=== PATIENT | male | born 1935 | race Caucasian/White ===

== ENCOUNTER 2021-09-03 07:59 | Inpatient (IN) | payer OTHER ==
[~2021-09-03] VITALS: Ht 167.6 cm; Wt 50.3 kg
[2021-09-03 08:09] VITALS: BP 120/90
[2021-09-03] MEDS ORDERED: PANTOPRAZOLE 40 MG INJ VIAL IVP ONE (08:15)
[2021-09-03] MEDS ORDERED: ONDANSETRON 4 MG/2 ML VIAL IVP ONE ×2 (08:15→08:50)
--- NOTE | 2021-09-03 08:20 | NUR ---
BLOOD COLLECTED. TIFFANIE MCLAINIA COLLECTED. BOTH GIVEN TO LAB.
[2021-09-03] MEDS ORDERED: NACL 0.9% 500 ML IV ONE ×2 (08:35→09:20)
[2021-09-03] MEDS ORDERED: METOCLOPRAMIDE 10 MG/2 ML INJ VIAL IVP ONE (08:40)
[2021-09-03 08:48] LABS: BASOPHILS % (AUTO) 0.1 % (0.0-2.0); HEMATOCRIT 56.2 % (36-52); HEMOGLOBIN 18.5 g/dL (12.0-18.0); LYMPHOCYTES # (AUTO) 0.6 K/uL (2.0-11.5); LYMPHOCYTES % (AUTO) 4.6 % (20.5-51.1); MEAN CORPUSCULAR HEMOGLOBIN 31 pg (27-31); MEAN CORPUSCULAR HGB CONC 33 g/dL (33-37); MEAN CORPUSCULAR VOLUME 95.1 fL (80-94); MONOCYTES # (AUTO) 0.7 K/uL (0.8-1.0); MONOCYTES % (AUTO) 5.4 % (1.7-9.3); NEUTROPHILS # (AUTO) 11.2 K/uL (1.8-7.7); PLATELET COUNT (AUTO) 316 K/uL (140-450); RED BLOOD CELL COUNT(AUTO) 5.91 MIL/uL (4.20-6.10); RED CELL DISTRIBUTION WIDTH 12.7 % (11.6-13.7); WHITE BLOOD COUNT (AUTO) 12.4 K/uL (4.8-10.8)
--- NOTE | 2021-09-03 08:53 | NUR ---
XRAY AT BEDSIDE
[2021-09-03 08:57] LABS: PROTHROMBIN TIME 11.3 secs (10.8-13.4)
--- NOTE | 2021-09-03 08:57 | NUR ---
C/O VOMITING BLOOD, DIZZINESS, MID ABDOMINAL PAIN X LAST NIGHT. COFFEE GROUND EMISIS. PT PRESENTED TO HOSPITAL WITH BRUISING ON BOTH ARMS. PAIN A 7/10. BILATERAL 18G IVS IN AC WITH BVOLUS RUNNING. PT AXOX4 AND AMBULATORY. PT COMPLING OF ABDOMINAL PAIN SINCE LAST NIGHT. PT STATES PAIN IS LIKE CRAMPING. SO FAR HAS PRODUCED 130CC EMISIS. PMH: VIT D DEF, HERNIA SURGERY. ROXYA
[2021-09-03 09:14] LABS: NEUTROPHILS % (AUTO) 89.9 % (42.2-75.2)
[2021-09-03] MEDS ORDERED: VITD400 PO (09:14)
[2021-09-03 09:16] LABS: ALBUMIN 3.9 g/dL (3.4-5.0); ASPARTATE AMINOTRANSFERASE 23 U/L (15-37); CARBON DIOXIDE 36.9 mmol/L (21-32); CHLORIDE 100 mmol/L (98-107); CREATININE 1.7 mg/dL (0.6-1.3); GLUCOSE 178 mg/dL (74-106); LIPASE 168 U/L (73-393); POTASSIUM 3.9 mmol/L (3.5-5.1); SODIUM SERUM 147 mmol/L (136-145); TOTAL BILIRUBIN 1.2 mg/dL (0.0-1.0); UREA NITROGEN, BLOOD 27 mg/dL (7-18)
--- NOTE | 2021-09-03 09:42 | NUR ---
PT REPOSITIONED WITH FOR COMFORT AND PROVIDED WITH PILLOW
--- NOTE | 2021-09-03 09:54 | NUR ---
VANDANA TSAI CELL NUMBER [phone]
[2021-09-03] MEDS ORDERED: AZITHROMYCIN 500 MG in DEXTROSE 5% 250 ML IV ONE (10:05)
[2021-09-03] MEDS ORDERED: cefTRIAXone 1,000 MG VIAL ONE (10:10)
--- NOTE | 2021-09-03 10:15 | NUR ---
pt taken to ct via leila
--- NOTE | 2021-09-03 10:19 | NUR ---
per sepsis sheet patient is to receive 1500mL bolus of NS. 1000 mL bolus given. per Dr. Deleon we are to only given 1000mL bolus due to patient having pulmonary edema
[2021-09-03] MEDS ORDERED: guaiFENesin DM 200/20 MG-10 ML 10 ML UDC PO PRN (10:30)
[2021-09-03] MEDS ORDERED: ACETAMINOPHEN 325 MG TAB PO PRN (10:30)
[2021-09-03] MEDS ORDERED: DOCUSATE SODIUM 100 MG GELCAP PO PRN (10:30)
[2021-09-03] MEDS ORDERED: PANTOPRAZOLE 40 MG INJ VIAL IVP SCH (10:30)
[2021-09-03] MEDS ORDERED: HYDROcodone/APAP 7.5/325 MG 1 TAB PO PRN (10:30)
[2021-09-03] MEDS ORDERED: ONDANSETRON 4 MG/2 ML VIAL IM/IVP PRN (10:30)
[2021-09-03] MEDS ORDERED: POTASSIUM CHLORIDE 10 MEQ TABER PO PRN (10:30)
[2021-09-03] MEDS ORDERED: ZOLPIDEM 5 MG TAB PO PRN (10:30)
--- NOTE | 2021-09-03 10:41 | NUR ---
Patient appears to be resting comfortably in bed. Vital Signs within normal limits. Respirations even and unlabored.
[2021-09-03 11:03] LABS: AMYLASE 79 U/L (25-115); CHOL/HDL RATIO 2.5 (1-4.5); FREE T4 (FREE THYROXINE) 1.54 ng/dL (0.76-1.46); HDL CHOLESTEROL 64 mg/dL (40-60); LDL (CALC) 82 mg/dL (60-100); LIPASE 166 U/L (73-393); MAGNESIUM 2.3 mg/dL (1.8-2.4); PHOSPHORUS 5.2 mg/dL (2.5-4.9); THYROID STIMULATING HORMONE 2.53 uIU/mL (0.34-3.74); TRIGLYCERIDES 56 mg/dL (30-150)
[2021-09-03] MEDS ORDERED: AZITHROMYCIN 500 MG INJ VIAL IV ONE (11:06)
[2021-09-03 11:58] LABS: APPEARANCE,URINE CLEAR (CLEAR); BILIRUBIN,URINE 1+ (NEGATIVE); BLOOD, URINE NEGATIVE (NEGATIVE); COLOR,URINE DARK YELLOW (YELLOW); LEUKOCYTE ESTERASE ,URINE NEGATIVE (NEGATIVE); NITRITE, URINE NEGATIVE (NEGATIVE); UGLUCOSE NEGATIVE (NEGATIVE)
--- NOTE | 2021-09-03 12:05 | NUR ---
100CC COFFEE GROUND EMISIS THROWN AWAY
[2021-09-03 12:32] LABS: PROTHROMBIN TIME 11.6 secs (10.8-13.4)
[2021-09-03 12:32] LABS: CALCIUM OXALATE CRYSTALS,UR None Seen /HPF (None Seen); OTHER CRYSTALS,URINE None Seen /HPF (None Seen); RBC,URINE NONE SEEN /HPF (0-5); TRICHOMONAS,URINE None Seen /HPF (None Seen); TRIPLE PHOSPHATE CRYSTAL,UR None Seen /HPF (None Seen); URIC ACID CRYSTALS,URINE None Seen /HPF (None Seen); URINE AMORPHOUS URATE None Seen /HPF (None Seen); WBC,URINE 0-5 /HPF (0-5); YEAST,URINE None Seen /HPF (None Seen)
[2021-09-03 12:33] LABS: COARSE GRANULAR CASTS,URINE None Seen /LPF (None Seen); FINE GRANULAR CASTS,URINE None Seen /LPF (None Seen); HYALINE CASTS, URINE None Seen /LPF (None Seen); OTHER CASTS, URINE None Seen /LPF (None Seen); RED BLOOD CELL CASTS,URINE None Seen /LPF (None Seen); WAXY CASTS,URINE None Seen /LPF (None Seen)
--- NOTE | 2021-09-03 12:47 | NUR ---
CURRENT ORAL TEMP 100.2. PT PROVIDED WITH ACETAMINOPHEN PO AND COOL TOWELS
--- NOTE | 2021-09-03 13:05 | NUR ---
RECEIVED PT FROM ER NURSE JOSE FOR CONTINUITY OF CARE. PT TRANSPORTED FROM ER VIA [facility]. PT ABLE TO WALK WITH STEADY GAIT FROM [facility] TO HIS BED. A&O4. RESPIRATIONS EVEN AND UNLABORED AT ROOM AIR. NO SIGNS OF DISTRESS NOTED. DENIES PAIN AT THIS TIME. V/S STABLE. SKIN WARM, DRY AND INTACT. IV BILATERAL AC BOTH 18 G. ABDOMEN IS SOFT, NON DISTENDED WITH ACTIVE BOWEL SOUNDS PRESENT. PT CONTINENT TO BOWEL AND VOID, AMBULATORY. NO EDEMA PRESENT ON ALL EXTREMITIES. PT ABLE TO COMMUNICATE HIS NEEDS. PT IS NOW COMFORTABLE LYING IN BED. CALL LIGHT WITHIN REACH. SAFETY MEASURES IN PLACE. WILL CONTINUE TO MONITOR.
--- NOTE | 2021-09-03 13:09 | NUR ---
Patient will be admitted to care of DR. HARRINGTON. Admited to TELE. Will go to room 112B. Belongings list completed. Report to CARRIE SCHMITZ.
--- NOTE | 2021-09-03 14:07 | NUR ---
PT WS SEEN FOR DYSPHAGIA. PT WAS ABLE TO SAFELY SWALLOW PUREE DIET WITH THIN LIQUID WITHOUT S/S OF ASPIRATION. RECOMMENDATION MS DIET WITH THIN LIQUID
--- NOTE | 2021-09-03 14:20 | NUR ---
RECEIVED CALL FROM DR SERRA. PT IS FOR EGD TOMORROW. ORDERED PT TO BE ON CLEAR LIQUID DIET THEN NPO AFTER 10PM, PROTONIX 40 MG IVP EVERY 12 HRS. CONSENT FOR EGD PRINTED.
[2021-09-03] MEDS: DEXT 5% / NACL 0.9% 500 ML IV SCH ×2 (14:45→21:00)
[2021-09-03] MEDS: PIPERACILLIN/TAZOBACTAM 3.375 GM in DEXTROSE 5% 50 ML IV SCH ×2 (15:03→21:04)
[2021-09-03 15:20] VITALS: BP 145/74
--- NOTE | 2021-09-03 15:20 | NUR ---
Patient's Plan of Care was discussed and reviewed with Jacquie JUAN
--- NOTE | 2021-09-03 15:50 | NUR ---
SPOKE TO DAUGHTER VANDANA FOR UPDATES ABOUT PTs CONDITION.
--- NOTE | 2021-09-03 17:45 | NUR ---
DID PT ROUNDS. PT IN BED, SLEEPING. BREATHING EVEN AND UNLABORED. NO DISTRESS NOTED. NO ADVERSE REACTION ON ANTIBIOTICS GIVEN. INFORMED PT ABOUT EGD TOMORROW. INFORMED PT ABOUT HIS DIET OF CLEAR LIQUID THEN NPO AFTER 10PM. NPO SIGN STARTING AT 10PM POSTED ON THE DOOR. WILL ENDORSE TO THE MEDIA DIRECTOR NURSE.
--- NOTE | 2021-09-03 19:20 | NUR ---
RECEIVED REPORT FROM AM NURSE . PT IS AWAKE ON RM AIR WITH NO S/S OF DISTRESS AT THIS TIME. PT IS AMBULATORY. IV SITE RAC 18G. SKIN IS INTACT. PLAN OF CARE DISCUSSED. WILL CONTINUE TO MONITOR.
--- NOTE | 2021-09-03 19:25 | NUR ---
ENDORSED PT TO STRAIGHTENING ROLL OPERATOR NURSE FOR CONTINUITY OF CARE. ALL NEEDS MET THROUGHOUT SHIFT. PT IS STABLE.
[2021-09-03 20:00] VITALS: BP 148/70
--- NOTE | 2021-09-03 21:00 | NUR ---
HS MEDS GIVEN . EDUCATED PT RE: NPO STATUS AFTER 10PM FOR EGD IN AM 09/04/[address] MALDONADO. PT AMBULATORY. HS MEDS GIVEN. IV SITE RAC 18G; LAC 18G INFUSING D5NS@80CC/HR. SKIN IS INTACT. DENIES PAIN. WILL CONTINUE TO MONITOR.
[2021-09-03] MEDS: PANTOPRAZOLE 40 MG INJ VIAL IVP SCH (21:06)
[2021-09-04] VITALS: BP 142/76
--- NOTE | 2021-09-04 02:00 | NUR ---
FREQ ROUNDS. PT SLEEPING RR EVEN AND UNLABORED. NAD. WILL CONTINUE TO OBSERVE.
[2021-09-04] MEDS: DEXT 5% / NACL 0.9% 500 ML IV SCH ×4 (03:08→22:00)
[2021-09-04 04:00] VITALS: BP 147/66
[2021-09-04] MEDS: PIPERACILLIN/TAZOBACTAM 3.375 GM in DEXTROSE 5% 50 ML IV SCH ×3 (04:05→20:23)
--- NOTE | 2021-09-04 06:05 | NUR ---
PT RESTING IN BED/DOZING. VSS AFEBRILE ON TELE: SR/BBB/PEAKED T-WAVE. REMAINS NPO FOR EGD THIS MORNING. PREOP CHECKLIST DONE ; COVID INFO IN COMPUTER. PT WANTS TO SPEAK WITH SURGEON. CONSENT ON CHART NEEDS TO BE SIGNED. CHG BATH WIPES AT BEDSIDE. PREOP BATH NEEDS TO BE DONE. CONTINUE TO MONITOR.
[2021-09-04 06:07] LABS: T4 (THYROXINE) 10.6 ug/dL (4.5-12.0)
[2021-09-04 07:27] LABS: HEMATOCRIT 43.8 % (36-52); HEMOGLOBIN 14.3 g/dL (12.0-18.0); LYMPHOCYTES # (AUTO) 1.1 K/uL (2.0-11.5); LYMPHOCYTES % (AUTO) 7.9 % (20.5-51.1); MEAN CORPUSCULAR HEMOGLOBIN 31 pg (27-31); MEAN CORPUSCULAR HGB CONC 33 g/dL (33-37); MONOCYTES # (AUTO) 1.3 K/uL (0.8-1.0); NEUTROPHILS % (AUTO) 82.1 % (42.2-75.2); PLATELET COUNT (AUTO) 196 K/uL (140-450); RED BLOOD CELL COUNT(AUTO) 4.61 MIL/uL (4.20-6.10); RED CELL DISTRIBUTION WIDTH 12.5 % (11.6-13.7); WHITE BLOOD COUNT (AUTO) 13.5 K/uL (4.8-10.8)
--- NOTE | 2021-09-04 07:30 | NUR ---
ENDORSEDPT REPORT TO AM CARRIE ABDI FOR CONTINUITY OF CARE. PT IS STABLE.
[2021-09-04 07:32] LABS: ANION GAP 9.4 (8-16); CARBON DIOXIDE 32.1 mmol/L (21-32); CHLORIDE 108 mmol/L (98-107); CREATININE 1.4 mg/dL (0.6-1.3); GLUCOSE 130 mg/dL (74-106); POTASSIUM 3.5 mmol/L (3.5-5.1); SODIUM SERUM 146 mmol/L (136-145); UREA NITROGEN, BLOOD 23 mg/dL (7-18)
[2021-09-04 08:00] VITALS: BP 147/66
--- NOTE | 2021-09-04 08:00 | NUR ---
RECEIVED ENDORSEMENT FROM PM SHIFT NURSE W/ PATIENT NPO FROM MIDDLE NIGHT FOR EGD. WAITING MD EXPLAIN PROCEDURE TO PATIENT AND SIGN CONSENT. CHG BATH DONE AFTER RECEIVE REPORT. PIV LCA 18G SALINE LOCK, RAC 18G D5NA @80ML/HR INFUSING. WILL CONTINUE TO MONITOR.
[2021-09-04] MEDS: PANTOPRAZOLE 40 MG INJ VIAL IVP SCH ×2 (08:43→20:24)
[2021-09-04] MEDS ORDERED: MIDAZOLAM 2 MG/2 ML VIAL ONE (08:45)
[2021-09-04] MEDS ORDERED: fentaNYL citrate 0.05 MG/ML VIAL ONE (08:45)
--- NOTE | 2021-09-04 08:54 | NUR ---
OR NURSE COME TO PICK PATIETN FOR EGD, CONSENT SIGNED, LAC IV PULL OUT ACCIDENTLY BY PATIENT. WILL F/U.
--- NOTE | 2021-09-04 10:12 | NUR ---
PATIENT RETURN FROM OR FROM EGD PROCEDURE WHICH FIND MULTIPLE VARICES TEAR, HIATAL HERNIA W/ NG-TUBE PLACE, WRIST RESTRICT IN PLACE, PATTIENT JUST WEAK UP AND PULL NG-TUBE OUT.
[2021-09-04] MEDS ORDERED: MIDAZOLAM 2 MG/2 ML VIAL IVP ONE (10:20)
[2021-09-04] MEDS ORDERED: fentaNYL citrate 0.05 MG/ML VIAL IVP ONE (10:20)
[2021-09-04 12:00] VITALS: BP 145/64
[2021-09-04 16:00] VITALS: BP 166/56
--- NOTE | 2021-09-04 17:43 | NUR ---
FOUND PATIENT'S IV OUT. PLACE A NEW IV AT R. UPPER ARM 22G.
--- NOTE | 2021-09-04 19:25 | NUR ---
ENDORSE PATIENT TO PM SHIFT NURSE W/ PIV @ R. UPPER ARM 22G PATENT. IV D5NS INFUSING, NG-TUBE CONNECT TO WALL SUCTION ON
--- NOTE | 2021-09-04 19:26 | NUR ---
RECEIVED REPORT FROM AM NURSE TRINIDAD RN FOR CONTINUITY OF CARE. PT IS RESTING, ON ROOM AIR,. STILL NPO HYPOACTIVE BOWEL SOUNDS. NG TUBE TO INTERMITTENT SUCTION DRAINING BLOOD TINGED GASTRIC FLUID. IV SITE ASHWIN 22G INFUSING D5 0.9NS @80CC/HR.SKIN IS INTACT. PLAN OF CARE DISCUSSED WILL CONTINUE TO MONITOR.
[2021-09-04 20:00] VITALS: BP 147/66
--- NOTE | 2021-09-04 21:30 | NUR ---
HS MEDS GIVEN. PT REMAINS NPO HYPOACTIVE BOWEL SOUNDS. WRIST RESTRAINTS HAVE BEEN OFF SINCE 1729. ABLE TO MAKE NEEDS KNOWN. PT HAS DRY THROAT AND COUGHS UP STICKY PHLEM. IN EMESIS BAG. WILL CONTINUE WITH FREQ ROUNDS.
[2021-09-05] VITALS: BP 148/60
[2021-09-05] MEDS: DEXT 5% / NACL 0.9% 500 ML IV SCH ×2 (01:00→11:04)
--- NOTE | 2021-09-05 02:00 | NUR ---
FREQ ROUNDS. PT SLEEPING RR EVEN AND UNLABORED. ON ROOM AIR. NG-TUBE STILL TO INTERMITTENT SUCTION DRAINING SANGUINOUS GASTRIC FLUID.IV INTACT, D5NS INFUSING@80CC/HR. REMAINS NPO FOR CT OF THE ABDOMEN WITH CONTRAST TODAY 09/05/2021. PT SIGNED HIS PART OF THE CONSENT.IT'S ON THE CHART
[2021-09-05 04:00] VITALS: BP 166/56
[2021-09-05] MEDS: PIPERACILLIN/TAZOBACTAM 3.375 GM in DEXTROSE 5% 50 ML IV SCH ×3 (04:38→21:22)
[2021-09-05 06:30] LABS: BASOPHILS % (AUTO) 0.3 % (0.0-2.0); EOSINOPHILS % (AUTO) 0.1 % (0.0-4.0); HEMATOCRIT 42.1 % (36-52); HEMOGLOBIN 13.9 g/dL (12.0-18.0); LYMPHOCYTES # (AUTO) 1.2 K/uL (2.0-11.5); LYMPHOCYTES % (AUTO) 11.9 % (20.5-51.1); MEAN CORPUSCULAR HEMOGLOBIN 31 pg (27-31); MEAN CORPUSCULAR HGB CONC 33 g/dL (33-37); MEAN CORPUSCULAR VOLUME 95.6 fL (80-94); NEUTROPHILS # (AUTO) 7.9 K/uL (1.8-7.7); NEUTROPHILS % (AUTO) 77.7 % (42.2-75.2); PLATELET COUNT (AUTO) 159 K/uL (140-450); RED BLOOD CELL COUNT(AUTO) 4.41 MIL/uL (4.20-6.10); WHITE BLOOD COUNT (AUTO) 10.2 K/uL (4.8-10.8)
[2021-09-05 06:47] LABS: ANION GAP 9.2 (8-16); CARBON DIOXIDE 29.3 mmol/L (21-32); CHLORIDE 112 mmol/L (98-107); CREATININE 1.1 mg/dL (0.6-1.3); GLUCOSE 97 mg/dL (74-106); POTASSIUM 3.5 mmol/L (3.5-5.1); SODIUM SERUM 147 mmol/L (136-145); UREA NITROGEN, BLOOD 15 mg/dL (7-18)
--- NOTE | 2021-09-05 07:25 | NUR ---
ENDORSED REPORT TO AM NURSE TRINIDAD RN FOR CONTINUITY OF CARE. PT IS STABLE.
--- NOTE | 2021-09-05 07:26 | NUR ---
RECEIVED ENDORSEMENT FROM PM SHIFT NURSE THAT PATIENT REST IN BED, W/ PIV @ R. UPPER ARM 22G PATENT. IV D5NS @80ML/HR INFUSING, NG-TUBE CONNECT TO WALL SUCTION ON
[2021-09-05 08:00] VITALS: BP 160/58
--- NOTE | 2021-09-05 08:58 | NUR ---
PATIENT HAS BEEN SCREENED AND CATEGORIZED MODERATE NUTRITION RISK. PATIENT WILL BE SEEN WITHIN 3-5 DAYS OF ADMISSION. /08/[address]
[2021-09-05] MEDS: PANTOPRAZOLE 40 MG INJ VIAL IVP SCH ×2 (09:30→21:23)
[2021-09-05] MEDS: CALCIUM ACETATE 667 MG TAB PO SCH ×2 (10:55→17:10)
[2021-09-05] MEDS: DEXT 5% /NACL 0.9% 1,000 ML IV SCH (11:55)
[2021-09-05 12:00] VITALS: BP 119/62
--- NOTE | 2021-09-05 15:00 | NUR ---
DC PLANNING PATIENT IS AN 86-YEAR-OLD MALE ADMITTED TO [facility]/ED ON 09/03/2021. DUE TO EPISODES OF PERSISTENT DARK BROWN HEMATEMESIS ASSOCIATED WITH NAUSEA. SW MET WITH PATIENT AT BEDSIDE TO DISCUSS AND GATHER PATIENT'S COLLATERAL INFORMATION. PATIENT WAS AWAKE AND ALERT DURING MEETING AND REPORTED LIVING AT HOME WITH HIS DAUGHTER VANDANA MARRUFO AND HER BOYFRIEND. PATIENT STATED HAVING A GOOD FAMILY SUPPORT BUT ALSO CONTINUE BEEN REALLY INDEPENDENT AT HOME. STATED " MY DAUGHTER AND HER BOYFRIEND LIVES WITH ME AT MY HOUSE BUT I CAN TAKE CARE OF MY SELF AND MY ANIMALS" PATIENT REPORTED THAT HIS DAUGHTER VANDANA IS HIS EMERGENCY CONTACT AND MEDICAL DECISION MAKER. PATIENT STATED THAT HE DO NOT HAVE A.D. AND DECLINED A.D. INF. FORMS PROVIDED BY SYDNEE. PATIENT STATED" IF I CAN'T THEN VANDANA CAN MAKE DECISIONS" PATIENT REPORTED NOT TAKING ANY MEDICATIONS AT THIS TIME AND IF HE NEEDS MEDICATIONS TO BE PRESCRIBED AND SEND TO [facility] IN [facility]. PATIENT REPORTED NEVER HAVING ISSUES TAKING OR GETTING HIS MEDICATIONS AND ALSO REPORTED NOT HAVING ANY DME AT HOME. PATIENT STATED THAT HE WANTS TO GO HOME SOON AND WHEN HE IS READY FOR DC HE WILL BE BANK VAULT ATTENDANT BY HIS DAUGHTER VANDANA FROM [facility] TO TAKE HIM HOME. SYDNEE EXPLAINED TO PATIENT THE NEED FOR A FOLLOW UP APPOINTMENT WITH HER PCP WITHIN 5-7 DAYS AFTER HER DC FROM [facility]. PATIENT AGREED AND STATED THAT HE WILL MAKE HIS OWN APPOINTMENT. SW THANKED HIM FOR HIS INFORMATION AND WILL FOLLOW UP NEEDED.
[2021-09-05 16:00] VITALS: BP 157/61
--- NOTE | 2021-09-05 16:14 | NUR ---
DC PLANNING: THE PATIENT PRESENTED FROM HOME WITH C/O MULTIPLE EPISODES OF HEMATEMESIS AND NAUSEA. WBC'S 12.4, LACTIC ACID 3.8, DX OF UGI, SEPSIS AND DEHYDRATION. GIVEN ZOFRAN, IVF'S, REGLAN, ROCEPHIN AND ZITHROMAX IN ED. GI CONSULTED, EGD SCHEDULED TODAY, NGT IN PLACE. ST EVALUATION, RECOMMENDED PUREE DIET WITH THIN LIQUIDS. PT EVAL, PATIENT AMBULATED 12 FT, RECOMMENDATION FOR HOME HEALTH. PATIENT CONTINUED ON ZOSYN IV AND PROTONIX IV. T-MAX TODAY 99.7. CM SPOKE WITH THE PATIENTS DAUGHTER BY PHONE AND CONFIRMED HIS ADDRESS AND PHONE NUMBER. HE LIVES WITH HIS DAUGHTER IN A SINGLE STORY HOUSE AND IS INDEPENDENT IN ALL ACTIVITIES. HE HAS NO DME OR H/O HOME HEALTH AND DRIVES HIMSELF TO APPOINTMENTS. HIS PCP RETIRED AND HIS DAUGHTER IS IN THE PROCESS OF FINDING ANOTHER ONE. SHE IS IN AGREEMENT WITH HOME HEALTH FOR P.T. AND POSSIBLE S.T. IF NEEDED AND STATES THAT THE PATIENT HAS NEVER BEEN IN A SNF. SHE WILL PROVIDE TRANSPORT FOR THE PATIENT WHEN HE IS DISCHARGED. DC PLAN IS TO RETURN HOME WITH HOME HEALTH, CM WILL FOLLOW. Addendum: 09/05/21 at 1622 by Shilpi Camilo CM Amended: Links added. Addendum: 09/06/21 at 1525 by Shilpi Camilo CM DC PLANNING: ORDER RECEIVED FOR DC PLANNING AND HOME HEALTH. BOGDAN SPOKE WITH THE PATIENTS DAUGHTER TO DISCUSS HOME HEALTH CHOICES, STATES SHE HAS NO PREFERENCE, PERMISSION GIVEN TO REFER THE PATIENT TO [facility]. REFERRAL FAXED TO [facility], BOGDAN ALSO SPOKE WITH THE PATIENT AT BEDSIDE TO EXPLAIN THAT HE MIGHT DC TOMORROW AND THAT HOME HEALTH WILL BE ARRANGED. BOGDAN WILL FOLLOW. Addendum: 09/07/21 at 0833 by Shilpi Camilo CM DC PLANNING: BOGDAN SPOKE WITH HARJINDER AT [facility] AND CONFIRMED THAT THEY HAVE ACCEPTED THE PATIENT AND WILL START SEEING HIM. BOGDAN ENDORSED THAT THE PATIENT WILL DC TODAY. CM WILL FOLLOW.
--- NOTE | 2021-09-05 17:58 | NUR ---
SINCE 1300 TODAY, PATIENT WENT BATHROOM FOR BM X2. PER PATIENT REPORT THAT 1ST BM FULL W/ BLOOD. 2ND BM WAS AROUND 3 HOURS LATER SINCE 1ST, AND STOOL IS NORMAL PER PATIENT. WILL CONTINUE TO MONITOR
--- NOTE | 2021-09-05 19:42 | NUR ---
ENDORSE PT TO PM SHIFT NURSE THAT PATIENT REST IN BED, W/ PIV @ L. UPPER ARM 22G PATENT. IV D5NS @80ML/HR INFUSING, NG-TUBE CONNECT TO WALL SUCTION ON
--- NOTE | 2021-09-05 19:45 | NUR ---
RECEIVED PATIENT FROM AM NURSE FOR CONTINUITY OF CARE.PT IS STABLE
[2021-09-05 20:00] VITALS: BP 141/76
--- NOTE | 2021-09-05 23:00 | NUR ---
PT ASLEEP,RESPIRATIONS EVEN AND UNLABORED,NO DISTRESS NOTED
[2021-09-06] VITALS: BP 131/69
[2021-09-06] MEDS: DEXT 5% /NACL 0.9% 1,000 ML IV SCH ×2 (00:25→12:30)
--- NOTE | 2021-09-06 03:00 | NUR ---
PATIENT ASLEEP,NO DISTRESS NOTED
[2021-09-06 04:00] VITALS: BP 136/71
[2021-09-06] MEDS: PIPERACILLIN/TAZOBACTAM 3.375 GM in DEXTROSE 5% 50 ML IV SCH ×3 (05:02→22:00)
--- NOTE | 2021-09-06 06:15 | NUR ---
PATIENT PULLED OUT HIS NGT. TEXTED DR MALDONADO, AWAITING FOR RESPONSE
[2021-09-06 06:45] LABS: ANION GAP 9.4 (8-16); CARBON DIOXIDE 29.9 mmol/L (21-32); CHLORIDE 108 mmol/L (98-107); CREATININE 1.1 mg/dL (0.6-1.3); GLUCOSE 102 mg/dL (74-106); POTASSIUM 3.3 mmol/L (3.5-5.1); SODIUM SERUM 144 mmol/L (136-145); UREA NITROGEN, BLOOD 11 mg/dL (7-18)
[2021-09-06 06:48] LABS: PHOSPHORUS 2.5 mg/dL (2.5-4.9)
[2021-09-06 06:52] LABS: BASOPHILS % (AUTO) 0.3 % (0.0-2.0); EOSINOPHILS # (AUTO) 0.1 K/uL (0-0.4); EOSINOPHILS % (AUTO) 1.5 % (0.0-4.0); HEMATOCRIT 44.9 % (36-52); HEMOGLOBIN 14.7 g/dL (12.0-18.0); LYMPHOCYTES # (AUTO) 1.6 K/uL (2.0-11.5); LYMPHOCYTES % (AUTO) 18.4 % (20.5-51.1); MEAN CORPUSCULAR HEMOGLOBIN 31 pg (27-31); MEAN CORPUSCULAR HGB CONC 33 g/dL (33-37); MEAN CORPUSCULAR VOLUME 95.6 fL (80-94); MONOCYTES # (AUTO) 0.8 K/uL (0.8-1.0); MONOCYTES % (AUTO) 9.5 % (1.7-9.3); NEUTROPHILS % (AUTO) 70.3 % (42.2-75.2); PLATELET COUNT (AUTO) 164 K/uL (140-450); RED BLOOD CELL COUNT(AUTO) 4.69 MIL/uL (4.20-6.10); RED CELL DISTRIBUTION WIDTH 12.6 % (11.6-13.7); WHITE BLOOD COUNT (AUTO) 8.6 K/uL (4.8-10.8)
--- NOTE | 2021-09-06 07:30 | NUR ---
RECEIVED BEDSIDE REPORT FROM CEREAL SUPERVISOR NURSE FOR CONTINUITY OF CARE. PT IS RESTING. BREATHING IS EVEN AND UNLABORED. NO SIGNS AND SYMPTOMS OF DISTRESS. IV PATENT AND INTACT, IV FLUIDS RUNNING WELL. PT IS STABLE. CEREAL SUPERVISOR NURSE REPORTED THAT NGT WAS OUT AND MESSAGED MD. I WILL INSERT NGT BUT I WILL INFORM PRIMARY MD PLUS SURGEON ABOUT NGT AND CT SCAN WITH CONTRACT RESULTS YESTERDAY.
[2021-09-06 08:00] VITALS: BP 142/59
--- NOTE | 2021-09-06 09:00 | NUR ---
PT IS IN 46 HR BUT IS RESTING. CHECKED MANUALLY AND IS AT 44HR. INFORMED MD. HR TREND OVERNIGHT WERE IN 50S. PT IS RESTING. BREATHING IS EVEN AND UNLABORED. NO SIGNS AND SYMPTOMS OF DISTRESS. IV PATENT AND INTACT, IV FLUIDS RUNNING WELL. PT IS STABLE.
[2021-09-06] MEDS: PANTOPRAZOLE 40 MG INJ VIAL IVP SCH ×2 (09:38→23:01)
[2021-09-06] MEDS: CALCIUM ACETATE 667 MG TAB PO SCH ×2 (09:39→17:00)
--- NOTE | 2021-09-06 10:30 | NUR ---
DC OF NGT. PT HAS BEEN STARTED ON SOFT DIET PER MD ORDER. WILL SEE HOW PT TOLERATES. PT IS RESTING. BREATHING IS EVEN AND UNLABORED. NO SIGNS AND SYMPTOMS OF DISTRESS. IV PATENT AND INTACT, IV FLUIDS RUNNING WELL. PT IS STABLE.
--- NOTE | 2021-09-06 11:44 | NUR ---
PT IS RESTING. BREATHING IS EVEN AND UNLABORED. NO SIGNS AND SYMPTOMS OF DISTRESS. IV PATENT AND INTACT, IV FLUIDS RUNNING WELL. PT IS STABLE.
[2021-09-06 12:00] VITALS: BP 146/52
[2021-09-06] MEDS ORDERED: POTASSIUM CHLORIDE 10 MEQ TABER PO SCH (12:00)
--- NOTE | 2021-09-06 12:30 | NUR ---
PT TOLERATING SOFT DIET WELL. NO S/S OF GI DISTRESS. NO VOMITING OR UPSET STOMACH. PT IS RESTING. BREATHING IS EVEN AND UNLABORED. NO SIGNS AND SYMPTOMS OF DISTRESS. IV PATENT AND INTACT, IV FLUIDS RUNNING WELL. PT IS STABLE.
--- NOTE | 2021-09-06 13:44 | NUR ---
09/06/21 RD INITIAL ASSESSMENT COMPLETED PLEASE REFER TO NUTRITION ASSESSMENT UNDER CARE ACTIVITY FOR ESTIMATED NUTRITIONAL NEEDS. 1. CONTINUE SOFT DIET TOLERATED -RECOMMEND ENSURE BID IF PT PO INTAKE IS < 75% 2. RD TO FOLLOW-UP 7 DAYS, LOW RISK BERTA GARRIDO, RD
[2021-09-06 16:00] VITALS: BP 114/56
--- NOTE | 2021-09-06 16:37 | NUR ---
PT IS SLEEPING. BREATHING IS EVEN AND UNLABORED. NO SIGNS AND SYMPTOMS OF DISTRESS. IV PATENT AND INTACT, IV FLUIDS RUNNING WELL. PT IS STABLE.
--- NOTE | 2021-09-06 18:19 | NUR ---
PT IS RESTING. BREATHING IS EVEN AND UNLABORED. NO SIGNS AND SYMPTOMS OF DISTRESS. IV PATENT AND INTACT, IV FLUIDS RUNNING WELL. PT IS STABLE.
--- NOTE | 2021-09-06 19:33 | NUR ---
SERUM K + 3.3 - PER CARRIE WILSON HE GAVE K DUR 20MEQ / TAB ORDERED .
--- NOTE | 2021-09-06 19:35 | NUR ---
ENDORSED TO WINDOWS CONSULTANT NURSE FOR CONTINUITY OF CARE. POC DISCUSSED.
[2021-09-06 20:00] VITALS: BP 117/59
[2021-09-07] VITALS: BP 123/66
--- NOTE | 2021-09-07 | NUR ---
ROUNDS , NO COMPLAIN MADE .
[2021-09-07] MEDS: DEXT 5% /NACL 0.9% 1,000 ML IV SCH (01:25)
[2021-09-07 04:00] VITALS: BP 121/59
--- NOTE | 2021-09-07 04:00 | NUR ---
SB ON TELE MONITOR - NO COMPLAIN MADE , WILL CONT, TO MONITOR - BP WNL .
--- NOTE | 2021-09-07 05:00 | NUR ---
FOUND IV SITE LEAKING , REMOVE THE NEEDLE - INTACT , MIN. BLEEDING .
--- NOTE | 2021-09-07 05:30 | NUR ---
NEW IV SITE INSERTED - PROCEDURE TOLERATED WELL - MIN. BLEEDING .
[2021-09-07] MEDS: PIPERACILLIN/TAZOBACTAM 3.375 GM in DEXTROSE 5% 50 ML IV SCH (06:00)
--- NOTE | 2021-09-07 06:00 | NUR ---
HAD BM - NON BLOODY . WILL CONT. TO MONITOR
[2021-09-07 07:05] LABS: ANION GAP 9.5 (8-16); CARBON DIOXIDE 27.9 mmol/L (21-32); CHLORIDE 109 mmol/L (98-107); CREATININE 1.1 mg/dL (0.6-1.3); GLUCOSE 99 mg/dL (74-106); POTASSIUM 4.4 mmol/L (3.5-5.1); SODIUM SERUM 142 mmol/L (136-145); UREA NITROGEN, BLOOD 12 mg/dL (7-18)
[2021-09-07 07:13] LABS: MAGNESIUM 1.9 mg/dL (1.8-2.4); PHOSPHORUS 2.4 mg/dL (2.5-4.9)
[2021-09-07 07:14] LABS: BASOPHILS % (AUTO) 0.3 % (0.0-2.0); EOSINOPHILS # (AUTO) 0.3 K/uL (0-0.4); EOSINOPHILS % (AUTO) 3.7 % (0.0-4.0); HEMATOCRIT 42.1 % (36-52); HEMOGLOBIN 13.8 g/dL (12.0-18.0); LYMPHOCYTES # (AUTO) 1.4 K/uL (2.0-11.5); LYMPHOCYTES % (AUTO) 17.4 % (20.5-51.1); MEAN CORPUSCULAR HEMOGLOBIN 31 pg (27-31); MEAN CORPUSCULAR HGB CONC 33 g/dL (33-37); MEAN CORPUSCULAR VOLUME 94.7 fL (80-94); MONOCYTES # (AUTO) 0.7 K/uL (0.8-1.0); MONOCYTES % (AUTO) 9.4 % (1.7-9.3); NEUTROPHILS # (AUTO) 5.5 K/uL (1.8-7.7); NEUTROPHILS % (AUTO) 69.2 % (42.2-75.2); PLATELET COUNT (AUTO) 150 K/uL (140-450); RED BLOOD CELL COUNT(AUTO) 4.45 MIL/uL (4.20-6.10); RED CELL DISTRIBUTION WIDTH 12.5 % (11.6-13.7); WHITE BLOOD COUNT (AUTO) 7.9 K/uL (4.8-10.8)
--- NOTE | 2021-09-07 07:35 | NUR ---
ENDORSED - PT - STABLE
[2021-09-07 08:00] VITALS: BP 139/65
[2021-09-07] MEDS ORDERED: DOCU-299 PO (09:12)
[2021-09-07] MEDS ORDERED: PANT40EC PO (09:12)
[2021-09-07] MEDS: PANTOPRAZOLE 40 MG INJ VIAL IVP SCH (10:22)
[2021-09-07 11:04] VITALS: BP 129/66
--- NOTE | 2021-09-07 12:34 | NUR ---
PHYSICAL THERAPY CO-SIGN The Physical Therapy Progress Notes documented by Machine Stoppage Frequency Checker have been reviewed. Reviewed/Co-Signed by: Brenda Ibarra Documentation Done by: SARAH MACHUCA PTA Addendum: 09/07/21 at 1234 by Brenda Ibarra PT Amended: Links added.
== END 2021-09-07 12:15 | disposition home health service (06) | DRG 871 ==
LOC: MED 07:59 → MTU 11:06
PROVIDERS: ADMIT Family Medicine; ATTEND Family Medicine
PROC: 0W3P8ZZ Control Bleeding in Gastrointestinal Tract, Via Natural or Artificial Opening Endoscopic (ICD-10-PCS; principal; 2021-09-04 09:00)
DX: A41.9 Sepsis, unspecified organism (principal); N17.0 Acute kidney failure with tubular necrosis; J18.9 Pneumonia, unspecified organism; K22.6 Gastro-esophageal laceration-hemorrhage syndrome; E87.0 Hyperosmolality and hypernatremia; K92.0 Hematemesis; M48.56XA Collapsed vertebra, not elsewhere classified, lumbar region, initial encounter for fracture; M48.54XA Collapsed vertebra, not elsewhere classified, thoracic region, initial encounter for fracture; K56.609 Unspecified intestinal obstruction, unspecified as to partial versus complete obstruction; Z20.822 Contact with and (suspected) exposure to COVID-19; K52.9 Noninfective gastroenteritis and colitis, unspecified; N28.1 Cyst of kidney, acquired; K57.30 Diverticulosis of large intestine without perforation or abscess without bleeding; K20.90 Esophagitis, unspecified without bleeding; K44.9 Diaphragmatic hernia without obstruction or gangrene; F17.220 Nicotine dependence, chewing tobacco, uncomplicated; E86.0 Dehydration; E83.39 Other disorders of phosphorus metabolism
CPT/HCPCS: 36415; 71045; 80048; 80053; 81001; 82150; 83036; 83605; 83690; 83735; 83880; 84100; 84436; 84439; 84443; 84479; 84484; 85025; 85610; 85730; 86886; 86900; 86901; 87040; 87081; 92610; 93005; 96361; 96365; 96375; 97112; 97116; 97163-GP; 97530; 99291; C9113; J0456; J0696; J2250; J2405; J2543; J2765; J3010; J7030; J7060; Q0092

== ENCOUNTER 2021-12-29 11:56 | Inpatient (IN) | payer OTHER ==
[~2021-12-29] VITALS: Ht 165.1 cm; Wt 50.3 kg
[~2021-12-29 11:56] MED LIST: DOCU-299 PO; PANT40EC PO; VITD400 PO
[2021-12-29 12:03] VITALS: BP 126/85
--- NOTE | 2021-12-29 12:07 | NUR ---
W/C ASSISTED TO BED 3
--- NOTE | 2021-12-29 12:15 | NUR ---
86 Y/O MALE BIB SELF C/O OF N/V, EPIGASTRIC PAIN, CHEST PAIN BURNING AFTER TRYING TO VOMIT. PER PT HE HAD CONSTANT VOMITUS YESTERDAY, DESCRIBES VOMITUS "BLACK". DENIES ANY SOB, SKIN WARM AND DRY, DENIES ANY DIARRHEA. PT DENIES ANY ORAL INTAKE TODAY, DENIES ANY MEDICATION FOR N/V. PER PT THIS HAS OCCURED BEFORE. NKA PMH: DENIES RX: PANTOPRAZOLE
[2021-12-29] MEDS ORDERED: NACL 0.9% 1,000 ML IV ONE (12:45)
[2021-12-29] MEDS ORDERED: ONDANSETRON 4 MG/2 ML VIAL IVP ONE ×2 (12:45→15:10)
[2021-12-29 13:12] LABS: BASOPHILS % (AUTO) 0.3 % (0.0-2.0); HEMOGLOBIN 16.8 g/dL (12.0-18.0); LYMPHOCYTES # (AUTO) 0.6 K/uL (2.0-11.5); LYMPHOCYTES % (AUTO) 4.7 % (20.5-51.1); MEAN CORPUSCULAR HEMOGLOBIN 31 pg (27-31); MEAN CORPUSCULAR HGB CONC 33 g/dL (33-37); MEAN CORPUSCULAR VOLUME 94.5 fL (80-94); MONOCYTES # (AUTO) 1.1 K/uL (0.8-1.0); MONOCYTES % (AUTO) 8.2 % (1.7-9.3); NEUTROPHILS # (AUTO) 11.7 K/uL (1.8-7.7); NEUTROPHILS % (AUTO) 86.8 % (42.2-75.2); PLATELET COUNT (AUTO) 218 K/uL (140-450); RED CELL DISTRIBUTION WIDTH 13.2 % (11.6-13.7); WHITE BLOOD COUNT (AUTO) 13.5 K/uL (4.8-10.8)
--- NOTE | 2021-12-29 13:14 | NUR ---
XRAY AT BEDSIDE
[2021-12-29 13:58] LABS: ALBUMIN 3.6 g/dL (3.4-5.0); ANION GAP 13.4 (8-16); ASPARTATE AMINOTRANSFERASE 21 U/L (15-37); CARBON DIOXIDE 35.4 mmol/L (21-32); CHLORIDE 100 mmol/L (98-107); CREATININE 1.7 mg/dL (0.6-1.3); GLUCOSE 164 mg/dL (74-106); POTASSIUM 3.8 mmol/L (3.5-5.1); SODIUM SERUM 145 mmol/L (136-145); TOTAL BILIRUBIN 1.4 mg/dL (0.0-1.0); UREA NITROGEN, BLOOD 31 mg/dL (7-18)
[2021-12-29] MEDS ORDERED: diphenhydrAMINE 50 MG/ML VIAL IVP ONE (14:40)
[2021-12-29] MEDS ORDERED: METOCLOPRAMIDE 10 MG/2 ML INJ VIAL IVP ONE (14:40)
[2021-12-29 14:43] LABS: BASOPHILS % (AUTO) 0.3 % (0.0-2.0); HEMATOCRIT 49.6 % (36-52); HEMOGLOBIN 16.5 g/dL (12.0-18.0); LYMPHOCYTES # (AUTO) 0.7 K/uL (2.0-11.5); LYMPHOCYTES % (AUTO) 4.3 % (20.5-51.1); MEAN CORPUSCULAR HEMOGLOBIN 31 pg (27-31); MEAN CORPUSCULAR HGB CONC 33 g/dL (33-37); MEAN CORPUSCULAR VOLUME 93.5 fL (80-94); MONOCYTES # (AUTO) 1.4 K/uL (0.8-1.0); NEUTROPHILS # (AUTO) 13.1 K/uL (1.8-7.7); NEUTROPHILS % (AUTO) 86.4 % (42.2-75.2); PLATELET COUNT (AUTO) 209 K/uL (140-450); RED CELL DISTRIBUTION WIDTH 13.1 % (11.6-13.7); WHITE BLOOD COUNT (AUTO) 15.2 K/uL (4.8-10.8)
--- NOTE | 2021-12-29 15:02 | NUR ---
PT NOTED WITH N/V AT THIS TIME, NOTED DARK BROWN COLORED LIQUID VOMITUS, HOB ELEVATED. ERMD MADE AWARE
[2021-12-29] MEDS ORDERED: PANTOPRAZOLE 40 MG INJ VIAL IVP ONE (15:10)
[2021-12-29 15:11] LABS: ALBUMIN 3.3 g/dL (3.4-5.0); ANION GAP 9.6 (8-16); ASPARTATE AMINOTRANSFERASE 19 U/L (15-37); CARBON DIOXIDE 36.6 mmol/L (21-32); CHLORIDE 104 mmol/L (98-107); CREATININE 1.5 mg/dL (0.6-1.3); GLUCOSE 123 mg/dL (74-106); POTASSIUM 4.2 mmol/L (3.5-5.1); SODIUM SERUM 146 mmol/L (136-145); TOTAL BILIRUBIN 1.2 mg/dL (0.0-1.0); UREA NITROGEN, BLOOD 29 mg/dL (7-18)
[2021-12-29] MEDS: PANTOPRAZOLE 80 MG in NACL 0.9% 100 ML IVP SCH (15:44)
[2021-12-29] MEDS ORDERED: POTASSIUM CHLORIDE 40 MEQ, LIDOCAINE MPF 1% 25 MG in NACL 0.9% 250 ML IV PRN (16:00)
[2021-12-29] MEDS ORDERED: SODIUM PHOS / POTASSIUM PHOS 1 PKT PDR PO PRN (16:00)
[2021-12-29] MEDS ORDERED: DOCUSATE SODIUM 100 MG GELCAP PO PRN (16:00)
[2021-12-29] MEDS ORDERED: MORPHINE SULFATE 2 MG/ML SYR IVP PRN (16:00)
[2021-12-29] MEDS ORDERED: ACETAMINOPHEN 325 MG TAB PO PRN (16:00)
[2021-12-29] MEDS ORDERED: HYDROcodone/APAP 5/325 MG 1 TAB TAB PO PRN (16:00)
[2021-12-29] MEDS: DEXT 5% /NACL 0.9% 1,000 ML IV SCH (16:00)
[2021-12-29] MEDS ORDERED: ONDANSETRON 4 MG/2 ML VIAL IM/IVP PRN (16:00)
[2021-12-29] MEDS ORDERED: MAG SULF 2000 MG/WATER PREMIX 50 ML IV PRN (16:00)
--- NOTE | 2021-12-29 16:15 | NUR ---
Patient will be admitted to care of MARISEL MIGUEL. Admited to TELEMETRY. Will go to room 121B. Belongings list completed. Report to CAREY BUTLER.
[2021-12-29 16:26] LABS: MAGNESIUM 2.1 mg/dL (1.8-2.4); PHOSPHORUS 5.2 mg/dL (2.5-4.9)
[2021-12-29 16:45] VITALS: BP 141/68
--- NOTE | 2021-12-29 19:30 | NUR ---
RECEIVED REPORT FROM AM NURSE FOR CONTINUITY OF CARE. PT IS STABLE IN BED. A&OX4 WITH SLIGHT CONFUSION.DENIES PAIN. ON O2 2L/NC WITH NO ACUTE DISTRESS.RR EVEN AND UNLABORED WITH EQUAL CHEST RISE. GI IS INTACT. DIET REMAINS NPO EXCEPT FOR MEDS.PT'S SKIN IS INTACT.PT IS AMBULATORY BUT GAIT IS SLIGHTLY UNSTEADY. ALL SAFETY MEASURES IN PLACE. BED IN LOW AND LOCKED POSITION. CALL LIGHT WITHIN REACH. WILL CONTINUE TO MONITOR.
[2021-12-29 20:00] VITALS: BP 132/65
--- NOTE | 2021-12-29 22:30 | NUR ---
FREQ CHECKS. FOUND IV OUT. CARRIE LUCIANO STARTED IV IN RFA 22G INFUSING PROTONIX @10CC/HR. LFA 20G IV INFUSING IVF D5NS@50CC/HR. RUNNING SR ON TELEMETRY. RR EVEN AND UNLABORED WITH EQUAL CHEST RISE. CALL LIGHT WITHIN REACH. WILL CONTINUE TO MONITOR.
[2021-12-30] VITALS: BP 133/42
[2021-12-30] MEDS ORDERED: PANTOPRAZOLE 40 MG INJ VIAL ONE ×2 (01:09)
[2021-12-30] MEDS: PANTOPRAZOLE 80 MG in NACL 0.9% 100 ML IVP SCH (01:20)
[2021-12-30 04:00] VITALS: BP 124/63
[2021-12-30 07:18] LABS: BASOPHILS % (AUTO) 0.1 % (0.0-2.0); HEMATOCRIT 43.2 % (36-52); LYMPHOCYTES # (AUTO) 1.4 K/uL (2.0-11.5); LYMPHOCYTES % (AUTO) 10.7 % (20.5-51.1); MEAN CORPUSCULAR HEMOGLOBIN 31 pg (27-31); MEAN CORPUSCULAR HGB CONC 32 g/dL (33-37); MEAN CORPUSCULAR VOLUME 95.3 fL (80-94); MONOCYTES # (AUTO) 1.8 K/uL (0.8-1.0); MONOCYTES % (AUTO) 13.2 % (1.7-9.3); NEUTROPHILS # (AUTO) 10.2 K/uL (1.8-7.7); PLATELET COUNT (AUTO) 169 K/uL (140-450); RED BLOOD CELL COUNT(AUTO) 4.53 MIL/uL (4.20-6.10); RED CELL DISTRIBUTION WIDTH 13.1 % (11.6-13.7); WHITE BLOOD COUNT (AUTO) 13.4 K/uL (4.8-10.8)
[2021-12-30 07:35] LABS: ANION GAP 8.7 (8-16); CHLORIDE 110 mmol/L (98-107); CREATININE 1.2 mg/dL (0.6-1.3); GLUCOSE 100 mg/dL (74-106); POTASSIUM 3.7 mmol/L (3.5-5.1); SODIUM SERUM 147 mmol/L (136-145); UREA NITROGEN, BLOOD 30 mg/dL (7-18)
--- NOTE | 2021-12-30 07:45 | NUR ---
ENDORSED REPORT TO DAYSHIFT NURSE FOR CONTINUITY OF CARE. PT IS STABLE. ALL NEEDS MET THROUGHOUT THE SHIFT.
--- NOTE | 2021-12-30 08:54 | NUR ---
PATIENT HAS BEEN SCREENED AND CATEGORIZED LOW NUTRITION RISK. PATIENT WILL BE SEEN WITHIN 7 DAYS OF ADMISSION. 01/05/[address]
[2021-12-30] MEDS ORDERED: PANTOPRAZOLE 40 MG INJ VIAL IVP SCH (09:00)
[2021-12-30] MEDS: DEXT 5% /NACL 0.9% 1,000 ML IV SCH ×3 (11:38→20:30)
--- NOTE | 2021-12-30 14:21 | NUR ---
Asked Dr. Arvizu what the plan is since patient has been NPO. Dr. Arvizu asked if GI specialist Dr. Patel has seen patient yet. Patient said Dr. Patel has not come. Dr. Arvizu said ok to change diet to clear liquid if no active bleeding and to have patient NPO MN.
[2021-12-30] MEDS ORDERED: diphenhydrAMINE 50 MG/ML VIAL ONE (15:26)
[2021-12-30] MEDS ORDERED: fentaNYL citrate 0.05 MG/ML VIAL ONE (15:27)
[2021-12-30] MEDS ORDERED: MIDAZOLAM 2 MG/2 ML VIAL ONE (15:27)
--- NOTE | 2021-12-30 15:38 | NUR ---
DC PLANNING SW MET WITH PATIENT AT BEDSIDE TO COMPLETE ASSESSMENT. PATIENT REPORTS RESIDING AT THE ADDRESS ON FILE WITH HIS DAUGHTER AND DAUGHTERS BF. PATIENT IDENTIFIES AVNDANA MARRUFO [id number] EMERGENCY CONTACT AND MDM. PATIENT DENIES AD IN PLACE AND DECLINED AD PACKET OFFERED BY SYDNEE. PATIENT REPORTS MEETING WITH HIS PCP "A COUPLE MONTHS AGO'. PATIENT DENIES TAKING MEDICATION AT THIS TIME. PATIENT DENIES BARRIERS IN ACCESSING MEDICATIONS AND REPORTS PICKING UP MEDICATIONS FROM [employer] [facility] [employer], WHEN NEEDED. PATIENT REPORTS BEING INDEPENDENT IN ALL ACTIVITIES AND DENIES USE OF DME.PATIENT DENIES FOOD INSECURITIES. PATIENT REPORTS DC PLAN IS TO RETURN HOME WITH DAUGHTER PROVIDING TRANSPORTATION AND AIDING IN CARE, IF REQUIRED. Addendum: 01/03/22 at 1533 by Crista Olivares PER DR REQUEST; SYDNEE ARRANGED FOLLOW UP APPT WITH [facility] [phone]. SPOKE WITH HAMILTON WHO SCHEDULED APPT FOR JAN [address] HIGGINBOTHAM AT [address] [facility]. SYDNEE PROVIDED PATIENT WITH APPT CARD THAT INCLUDED DATE, TIME. DR, PHONE NUMBER AND ADDRESS. PATIENT WAS APPRECIATIVE AND ACCEPTED APPT. SYDNEE NOTIFIED PATIENTS DAUGHTER, VANDANA AND WAS MADE AWARE OF PATIENTS UPCOMING APPT.
--- NOTE | 2021-12-30 15:39 | NUR ---
Lita from procedure got consent for EGD procedure.
--- NOTE | 2021-12-30 15:42 | NUR ---
Patient left floor for EGD procedure.
[2021-12-30] MEDS ORDERED: MIDAZOLAM 2 MG/2 ML VIAL IVP ONE (16:15)
[2021-12-30] MEDS ORDERED: fentaNYL citrate 0.05 MG/ML VIAL IVP ONE (16:15)
[2021-12-30 16:23] VITALS: BP 124/55
[2021-12-30] MEDS: METOCLOPRAMIDE 10 MG/2 ML INJ VIAL IVP SCH ×2 (16:45→20:22)
--- NOTE | 2021-12-30 17:31 | NUR ---
Patient back from procedure around 1644. Patient drowsy and sleeping.
--- NOTE | 2021-12-30 17:33 | NUR ---
P.T. NOTES P.T. EVAL COMPLETED; REFER TO EVAL FOR DETAILS.
--- NOTE | 2021-12-30 19:10 | NUR ---
RECEIVED REPORT FROM AM NURSE REYNAGA FOR CONTINUITY OF CARE.PT STABLE AWAKE A&OX3. DENIES PAIN. ON RM AIR/O2WITH NO ACUTE DISTRESS. RR EVEN AND UNLABORED WITH EQUAL CHEST RISE. GI INTACT. ON FULL LIQUID DIET. ATE 100% OF DINNER. NOTICED R ARM AND HAND SHAKING. PT STATES "IT DOES THAT SOMETIMES." PT'S SKIN INTACT. RFA IV 22G S.L. LFA IV 20G RUNNING D5NS@70CC/HR. PT STANDS UP TO VOID. RE EDUCATED PT ABOUT PRESSING CALL JARVIS FOR NEEDS. ALL SAFETY MEASURES IN PLACE. WILL CONTINUE TO MONITOR.
[2021-12-30 20:00] VITALS: BP 159/65
[2021-12-30] MEDS: PANTOPRAZOLE 40 MG INJ VIAL IVP SCH (20:24)
--- NOTE | 2021-12-30 21:00 | NUR ---
HS MEDS GIVEN IVP WITHOUT DIFFICULTY. CLEAN CATCH URINE COLLECTED FOR UA. DENIES PAIN. ENCOURAGED TO CALL FOR ANY NEEDS. CALL LIGHT WITHIN REACH.
[2021-12-31] VITALS: BP 129/58
--- NOTE | 2021-12-31 02:40 | NUR ---
FREQ ROUNDS. VISUALLY ASSESSED PT ASLEEP IN BED.RR EVEN AND UNLABORED WITH EQUAL CHEST RISE. NAD. CALL LIGHT WITHIN REACH.
[2021-12-31 02:48] LABS: APPEARANCE,URINE CLEAR (CLEAR); BILIRUBIN,URINE NEGATIVE (NEGATIVE); BLOOD, URINE TRACE-I (NEGATIVE); COLOR,URINE YELLOW (YELLOW); LEUKOCYTE ESTERASE ,URINE NEGATIVE (NEGATIVE); NITRITE, URINE NEGATIVE (NEGATIVE); UGLUCOSE NEGATIVE (NEGATIVE)
[2021-12-31 03:04] LABS: RBC,URINE 0-5 /HPF (0-5); WBC,URINE 0-5 /HPF (0-5)
[2021-12-31 03:05] LABS: FINE GRANULAR CASTS,URINE 0-1 /LPF (None Seen)
[2021-12-31 04:00] VITALS: BP 132/55
--- NOTE | 2021-12-31 04:00 | NUR ---
FREQ ROUNDS. PT CALLED. UP TO BATHROOM WITH ONE PERSON ASSIST GAIT SLIGHTLY UNSTEADY. VOIDED AND HAD A MODERATE BM. DENIES PAIN. PADS, LEADS AND BATTERIES CHANGED ON TELEMETRY BOX. REPOSITIONED IN BED. IV LFA 20G INFUSING NS@70CC/HR. CALL LIGHT WITHIN REACH.
[2021-12-31 07:16] LABS: BASOPHILS % (AUTO) 0.2 % (0.0-2.0); EOSINOPHILS % (AUTO) 0.2 % (0.0-4.0); HEMATOCRIT 39.5 % (36-52); LYMPHOCYTES # (AUTO) 1.2 K/uL (2.0-11.5); LYMPHOCYTES % (AUTO) 12.9 % (20.5-51.1); MEAN CORPUSCULAR HEMOGLOBIN 31 pg (27-31); MEAN CORPUSCULAR HGB CONC 33 g/dL (33-37); MONOCYTES # (AUTO) 1.3 K/uL (0.8-1.0); MONOCYTES % (AUTO) 13.3 % (1.7-9.3); NEUTROPHILS # (AUTO) 7.1 K/uL (1.8-7.7); NEUTROPHILS % (AUTO) 73.4 % (42.2-75.2); PLATELET COUNT (AUTO) 158 K/uL (140-450); RED BLOOD CELL COUNT(AUTO) 4.16 MIL/uL (4.20-6.10); WHITE BLOOD COUNT (AUTO) 9.7 K/uL (4.8-10.8)
--- NOTE | 2021-12-31 07:30 | NUR ---
ENDORSED PT REPORT TO AM NURSE SARAH BUTLER FOR CONTINUITY OF CARE.. PT IS STABLE. ALL NEEDS MET THROUGHOUT THE SHIFT.
[2021-12-31 07:50] LABS: CHLORIDE 113 mmol/L (98-107); CREATININE 1.1 mg/dL (0.6-1.3); GLUCOSE 63 mg/dL (74-106); SODIUM SERUM 149 mmol/L (136-145); UREA NITROGEN, BLOOD 22 mg/dL (7-18)
[2021-12-31 08:00] VITALS: BP 96/51
[2021-12-31] MEDS: METOCLOPRAMIDE 10 MG/2 ML INJ VIAL IVP SCH (08:12)
[2021-12-31] MEDS: PANTOPRAZOLE 40 MG INJ VIAL IVP SCH ×2 (08:12→21:23)
[2021-12-31] MEDS: LACTULOSE 20 GM/30 ML UDC PO SCH (08:12)
--- NOTE | 2021-12-31 08:30 | NUR ---
ALL SCHEDULED MEDS GIVEN. PT IS STABLE. NO DISTRESS NOTED. WILL CONTINUE TO MONITOR
--- NOTE | 2021-12-31 10:39 | NUR ---
SCREEN FOR LOW PONCHO SCALE AT RISK, CONTINUE TO FOLLOW PRESSURE ULCER PREVENTION INTERVENTIONS. -TURN AND REPOSITION PATIENT Q 2H, ASSIST IF NEEDED -ASSESS AND MONITOR SKIN CONDITION DURING POSITION CHANGES -OFFLOAD BILATERAL HEELS BY PLACING PILLOWS UNDER CALVES AT ALL TIMES, UNLESS OTHERWISE CONTRAINDICATED -PRESSURE REDISTRIBUTION BY PLACING PILLOWS AND OFFLOADING SACRALCOCCYX -KEEP SKIN CLEAN AND DRY AT ALL TIMES.
[2021-12-31 12:00] VITALS: BP 113/52
--- NOTE | 2021-12-31 12:10 | NUR ---
CHECKED ON PATIENT. PT IS STABLE. NO DISTRESS NOTED. WILL CONTINUE TO MONITOR.
[2021-12-31 16:00] VITALS: BP 135/67
[2021-12-31] MEDS: METOCLOPRAMIDE 10 MG/10 ML SYRP UDC GT SCH (16:53)
--- NOTE | 2021-12-31 17:00 | NUR ---
ALL SCHEDULED MEDS GIVEN. PT IS STABLE. NO DISTRESS NOTED. WILL CONTINUE TO MONITOR.
--- NOTE | 2021-12-31 19:30 | NUR ---
ENDORSED TO TEAM FOREMAN NURSE FOR CONTINUITY OF CARE. PT IS STABLE.
--- NOTE | 2021-12-31 19:30 | NUR ---
RECEIVED REPORT FROM DAY SHIFT NURSE FOR CONTINUITY OF CARE. PATIENT IS A&O X3-4. PATIENT IS ON ROOM AIR AND BREATHING NORMALLY WITH SYMMETRICAL RISE AND FALL OF CHEST. PATIENT'S IV IS A 22G ON RFA AND A 20G ON LFA; NO FLUIDS RUNNING, PATIENT IS SALINE LOCKED. PATIENT IS SITTING UP IN BED, AWAKE. BED IS IN LOWEST POSITION, WHEELS LOCKED, CALL LIGHT IN PLACE. WILL CONTINUE TO OBSERVE PATIENT.
[2021-12-31 20:00] VITALS: BP 114/57
--- NOTE | 2021-12-31 21:30 | NUR ---
ADMINISTERED 2100 MEDICATION TO PATIENT. PATIENT TOLERATED IVP WELL. PATIENT WAS AWAKE SITTING UP IN BED. BREATHING WAS NORMAL WITH SYMMETRICAL RISE AND FALL OF CHEST. BED WAS IN LOWEST POSITION WITH WHEELS LOCKED AND CALL LIGHT IN PLACE. WILL CONTINUE TO OBSERVE PATIENT.
[2022-01-01] VITALS: BP 128/51
--- NOTE | 2022-01-01 | NUR ---
OBTAINED 0000 VITALS: VITALS WERE 97.8 TEMP, HR 59, BP 128/51, O2 95, RR 18. BREATHING WAS NORMAL WITH SYMMETRICAL RISE AND FALL OF CHEST. WILL CONTINUE TO OBSERVE PATIENT.
--- NOTE | 2022-01-01 02:00 | NUR ---
LOOKED IN ON PATIENT. PATIENT WAS SLEEPING. BREATHING WAS NORMAL WITH SYMMETRICAL RISE AND FALL OF CHEST. BED WAS IN LOWEST POSITION WITH WHEELS LOCKED AND CALL LIGHT IN PLACE. WILL CONTINUE TO OBSERVE PATIENT.
[2022-01-01 04:00] VITALS: BP 138/61
--- NOTE | 2022-01-01 04:30 | NUR ---
OBTAINED 0400 VITALS. VITALS WERE: TEMP 98.1, BP 138/61, HR 63, O2 95, RR 18. PATIENT GOT UP AND AMBULATED TO BATHROOM. PATIENT TOLERATED AMBULATION WELL. BREATHING WAS NORMAL WITH SYMMETRICAL RISE AND FALL OF CHEST. WILL CONTINUE TO OBSERVE PATIENT.
[2022-01-01 07:07] LABS: BASOPHILS % (AUTO) 0.4 % (0.0-2.0); EOSINOPHILS # (AUTO) 0.1 K/uL (0-0.4); EOSINOPHILS % (AUTO) 1.2 % (0.0-4.0); HEMATOCRIT 41.8 % (36-52); HEMOGLOBIN 13.8 g/dL (12.0-18.0); LYMPHOCYTES # (AUTO) 1.7 K/uL (2.0-11.5); LYMPHOCYTES % (AUTO) 21.1 % (20.5-51.1); MEAN CORPUSCULAR HEMOGLOBIN 31 pg (27-31); MEAN CORPUSCULAR HGB CONC 33 g/dL (33-37); MEAN CORPUSCULAR VOLUME 94.6 fL (80-94); MONOCYTES # (AUTO) 0.9 K/uL (0.8-1.0); MONOCYTES % (AUTO) 10.7 % (1.7-9.3); NEUTROPHILS # (AUTO) 5.4 K/uL (1.8-7.7); NEUTROPHILS % (AUTO) 66.6 % (42.2-75.2); PLATELET COUNT (AUTO) 150 K/uL (140-450); RED BLOOD CELL COUNT(AUTO) 4.42 MIL/uL (4.20-6.10); RED CELL DISTRIBUTION WIDTH 12.8 % (11.6-13.7); WHITE BLOOD COUNT (AUTO) 8.2 K/uL (4.8-10.8)
--- NOTE | 2022-01-01 07:10 | NUR ---
ADMINISTERED 0730 MEDICATION TO PATIENT. PATIENT TOLERATED WELL. WILL ENDORSE CARE TO DAY SHIFT.
[2022-01-01 07:11] LABS: ANION GAP 9.8 (8-16); CARBON DIOXIDE 30.4 mmol/L (21-32); CHLORIDE 107 mmol/L (98-107); CREATININE 1.1 mg/dL (0.6-1.3); GLUCOSE 84 mg/dL (74-106); POTASSIUM 4.2 mmol/L (3.5-5.1); SODIUM SERUM 143 mmol/L (136-145); UREA NITROGEN, BLOOD 13 mg/dL (7-18)
[2022-01-01] MEDS: METOCLOPRAMIDE 10 MG/10 ML SYRP UDC GT SCH ×4 (07:13→16:26)
--- NOTE | 2022-01-01 07:35 | NUR ---
ENDORSED TO DAY SHIFT NURSE FOR CONTINUITY OF CARE. PATIENT IS STABLE.
--- NOTE | 2022-01-01 07:36 | NUR ---
RECEIVED REPORT FROM NIGHTSHIFT NURSE. PT A/O X3. ABLE TO MAKE NEEDS KNOWN. NO SOB OR RESPIRATORY DISTRESS. ON RA. DENIES PAIN. RFA #22 SL AND LFA #20 SL. NEEDS ALL MET AT THIS TIME. SAFETY MEASURES IN PLACE.
[2022-01-01 08:00] VITALS: BP 156/71
[2022-01-01] MEDS: LACTULOSE 20 GM/30 ML UDC PO SCH (08:29)
[2022-01-01] MEDS: PANTOPRAZOLE 40 MG INJ VIAL IVP SCH ×2 (08:29→20:25)
--- NOTE | 2022-01-01 11:00 | NUR ---
PT STATES A LARGE BM. BOWEL SOUNDS ACTIVE X4 QUADRANTS. ABDOMEN FLAT, NO DISCOLORATIONS. PT DENIES NAUSEA OR VOMITING. PT ABLE TO TOLERATE BREAKFAST (FULL LIQUID DIET). SPOKE WITH PT'S DAUGHTER (VANDANA) VIA TELEPHONE AND PLAN OF CARE DISCUSSED AND DAUGHTER VERBALIZED UNDERSTANDING.
[2022-01-01 12:00] VITALS: BP 107/58
[2022-01-01] MEDS ORDERED: hydrALAZINE 20 MG/ML VIAL IVP PRN (14:10)
--- NOTE | 2022-01-01 15:00 | NUR ---
PT AMBULATING WITH MASK ON BACK AND FORTH HALLWAY FOR 10 MINUTES. DENIES PAIN. NO SOB NOTED. OBSERVED WITH STEADY GAIT. PT BACK IN BED RESTING COMFORTABLY. NEEDS ALL MET. ALL SAFETY MEASURES IN PLACE.
[2022-01-01 16:00] VITALS: BP 110/62
--- NOTE | 2022-01-01 16:26 | NUR ---
PT STATES NO NAUSEA OR VOMITING. PT REFUSES REGLAN. MEDICATION HELD.
--- NOTE | 2022-01-01 19:10 | NUR ---
REPORT GIVEN TO NIGHTSPAFT NURSE SCOTT FOR CONTINUITY OF CARE.
--- NOTE | 2022-01-01 19:30 | NUR ---
RECEIVED REPORT FROM DAY SHIFT NURSE JUHI. PATIENT IS A&O X3-4. PATIENT IS SITTING UP IN BED IN HIGH FOWLERS POSITION. PATIENT IS ON ROOM AIR, BREATHING NORMALLY WITH SYMMETRICAL RISE AND FALL OF CHEST. IV IS A 22G RFA AND A 20G LFA. PATIENT IS NOT RUNNING ANY FLUIDS AT THIS TIME (SALINE LOCKED). BED IS IN LOWEST POSITION, WHEELS LOCKED, CALL LIGHT IN PLACE. WILL CONTINUE TO OBSERVE PATIENT.
[2022-01-01 20:00] VITALS: BP 117/57
--- NOTE | 2022-01-01 20:05 | NUR ---
OBTAINED 1999 VITALS. VITALS WERE: TEMP 98.8, BP 117/57, HR 67, O2 98%, RR 18. PATIENT WAS SITTING UP IN BED. BREATHING WAS NORMAL WITH SYMMETRICAL RISE AND FALL OF CHEST. BED WAS IN LOWEST POSITION, WHEELS WERE LOCKED AND CALL LIGHT WAS IN PLACE. WILL CONTINUE TO OBSERVE PATIENT.
--- NOTE | 2022-01-01 21:00 | NUR ---
2100 IVP MEDICATION WAS GIVEN AT 2024. PATIENT TOLERATED WELL. PATIENT WAS TRYING TO GO TO SLEEP WHEN I CAME INTO THE ROOM. PATIENT REQUESTED ANOTHER PITCHER OF WATER. GAVE PATIENT ANOTHER PITCHER OF WATER. PATIENT THANKED ME AND STATED HE WAS GOING TO TRY AND GO TO SLEEP. PATIENT'S BREATHING WAS NORMAL WITH SYMMETRICAL RISE AND FALL OF CHEST. BED WAS IN LOWEST POSITION, WHEELS LOCKED, CALL LIGHT IN PLACE. WILL CONTINUE TO OBSERVE.
[2022-01-02] VITALS: BP 153/66
--- NOTE | 2022-01-02 | NUR ---
OBTAINED PATIENT'S 0000 VITALS. VITALS WERE: TEMP 98.4, HR 67, BP 153/66, O2 95, RR 18. PATIENT WAS SLEEPING UPON ENTERING ROOM, BUT WAS WOKEN UP FOR VITALS. PATIENT IS NOT RUNNING ANY FLUIDS AT THIS TIME (SALINE LOCK). PATIENT IS ON ROOM AIR AND BREATHING NORMALLY WITH SYMMETRICAL RISE AND FALL OF CHEST. WILL CONTINUE TO OBSERVE PATIENT.
--- NOTE | 2022-01-02 02:30 | NUR ---
LOOKED IN ON PATIENT. PATIENT WAS SLEEPING. BED WAS IN LOWEST POSITION, WHEELS LOCKED, CALL LIGHT IN PLACE. WILL CONTINUE TO OBSERVE PATIENT.
[2022-01-02 04:00] VITALS: BP 151/107
--- NOTE | 2022-01-02 04:30 | NUR ---
OBTAINED 0400 VITALS. VITALS WERE: 98.8 TEMP, BP 151/107, HR 60, O2 94, RR 18. ASKED PATIENT ABOUT I&O. PATIENT VOIDED 5X, NO BM. PATIENT'S BREATHING WAS NORMAL WITH NO SYMMETRICAL RISE AND FALL OF CHEST. WILL CONTINUE TO OBSERVE PATIENT.
[2022-01-02] MEDS: METOCLOPRAMIDE 10 MG/10 ML SYRP UDC GT SCH ×3 (06:47→16:30)
--- NOTE | 2022-01-02 06:48 | NUR ---
PATIENT REFUSED REGLAN. PATIENT DID NOT WANT MEDICATION BECAUSE IT TASTES BAD. OFFERED PATIENT WATER TO HELP WITH TASTE BUT PATIENT STILL DID NOT WANT MEDICATION. PATIENT'S BREATHING WAS NORMAL WITH SYMMETRICAL RISE AND FALL OF CHEST. BED WAS IN LOWEST POSITION WITH WHEELS LOCKED AND CALL LIGHT IN PLACE. WILL CONTINUE TO OBSERVE.
[2022-01-02 07:22] LABS: BASOPHILS % (AUTO) 0.4 % (0.0-2.0); EOSINOPHILS # (AUTO) 0.1 K/uL (0-0.4); EOSINOPHILS % (AUTO) 1.7 % (0.0-4.0); HEMATOCRIT 42.7 % (36-52); HEMOGLOBIN 14.3 g/dL (12.0-18.0); LYMPHOCYTES # (AUTO) 1.7 K/uL (2.0-11.5); LYMPHOCYTES % (AUTO) 22.1 % (20.5-51.1); MEAN CORPUSCULAR HEMOGLOBIN 31 pg (27-31); MEAN CORPUSCULAR HGB CONC 34 g/dL (33-37); MEAN CORPUSCULAR VOLUME 93.3 fL (80-94); MONOCYTES # (AUTO) 0.9 K/uL (0.8-1.0); MONOCYTES % (AUTO) 11.8 % (1.7-9.3); NEUTROPHILS # (AUTO) 4.9 K/uL (1.8-7.7); PLATELET COUNT (AUTO) 173 K/uL (140-450); RED BLOOD CELL COUNT(AUTO) 4.58 MIL/uL (4.20-6.10); RED CELL DISTRIBUTION WIDTH 12.9 % (11.6-13.7); WHITE BLOOD COUNT (AUTO) 7.7 K/uL (4.8-10.8)
--- NOTE | 2022-01-02 07:30 | NUR ---
ENDORSED TO DAY SHIFT JUHI FOR CONTINUITY OF CARE. PATIENT IS STABLE.
[2022-01-02 07:31] LABS: CARBON DIOXIDE 29.6 mmol/L (21-32); CHLORIDE 106 mmol/L (98-107); GLUCOSE 88 mg/dL (74-106); POTASSIUM 3.6 mmol/L (3.5-5.1); SODIUM SERUM 142 mmol/L (136-145); UREA NITROGEN, BLOOD 12 mg/dL (7-18)
--- NOTE | 2022-01-02 07:31 | NUR ---
RECEIVED REPORT FROM NIGHTSHIFT NURSE. PT A/O X3. ABLE TO MAKE NEEDS KNOWN. DENIES CHEST PAIN. DENIES NAUSEA. NO SOB OR RESPIRATORY DISTRESS. ON RA. RFA #22 SL AND LFA #20 SL. NEEDS ALL MET AT THIS TIME. SAFETY MEASURES IN PLACE.
[2022-01-02 08:00] VITALS: BP 145/79
[2022-01-02] MEDS: PANTOPRAZOLE 40 MG INJ VIAL IVP SCH ×2 (08:30→21:08)
[2022-01-02] MEDS: LACTULOSE 20 GM/30 ML UDC PO SCH (08:31)
--- NOTE | 2022-01-02 09:10 | NUR ---
SPOKE WITH MD REGARDING SR WITH ST ELEVATION. MD ORDERED STAT EKG WITH TROPONIN. PT DENIES CHEST PAIN. IN NO DISTRESS. NO SOB NOTED. RESTING COMFORTABLY. ALL SAFETY MEASURES IN PLACE.
--- NOTE | 2022-01-02 11:56 | NUR ---
P.T. NOTES D/C FROM P.T. AFTER TX, ENDORSED TO NURSING; PATIENT MAY BENEFIT W/ AMBULATION AD JONELLE W/ NURSE SUPERVISION.
[2022-01-02 12:00] VITALS: BP 134/79
[2022-01-02 16:00] VITALS: BP 134/71
--- NOTE | 2022-01-02 17:57 | NUR ---
PT SEEN WALKING AROUND WITH STEADY GAIT & SITTING UP AND DOWN IN CHAIR. NO SOB OR RESPIRATORY DISTRESS. ON RA. NEEDS ALL MET AT THIS TIME. SAFETY MEASURES IN PLACE.
[2022-01-02] MEDS: lisinopriL 10 MG TAB PO SCH (18:15)
--- NOTE | 2022-01-02 18:34 | NUR ---
PT WITH DINNER AT BEDSIDE. PT WITH GOOD APPETITE. PT STABLE. NO COMPLAINTS AT THIS TIME. NO SOB NOTED. ON RA. DENIES PAIN. ALL NEEDS MET. ALL SAFETY MEASURES IN PLACE.
--- NOTE | 2022-01-02 19:03 | NUR ---
REPORT GIVEN TO NIGHTSHIFT NURSE FOR CONTINUITY OF CARE.
--- NOTE | 2022-01-02 19:45 | NUR ---
REPORT BEDSIDE REPORT EARLIER FROM THE DAY NURSE FOR CONTINUITY OF CARE. RECEIVED PATIENT A/A/OX3, SITTING UP ON BED WATCHING SOMETHING ON HIS IPAD. PATIENT DENIES CHEST PAIN, SOB, DIZZINESS AND PALPITATIONS. PT NOT ON ANY DISTRESS AND NO COMPLAIN OF ANY PAIN AT THIS TIME. VSS, AFEBRILE, SATING 95% ON RA. 100% PACING ON TELE MONITOR, HR-52. FALL PRECAUTION IMPLEMENTED. INSTRUCTED TO CALL FOR ASSISTANCE AT ALL TIMES WHEN GETTING OUT OF BED. PATIENT VERBALIZED UNDERSTANDING WITH THE POC. CALL LIGHT WITHIN REACH. WILL CONTINUE MONITORING. Addendum: 01/02/22 at 2217 by Lita Lo RN RN WRONG PT ENTRY.
--- NOTE | 2022-01-02 19:45 | NUR ---
RECEIVED BEDSIDE REPORT EARLIER FROM THE DAY NURSE FOR CONTINUITY OF CARE. RECEIVED PATIENT A/A/OX3, LAYING ON BED. PATIENT STATED THAT HE IS JUST RESTING AND TRYING TO RELAX. PATIENT DENIES ABDOMINAL PAIN, NAUSEA AND VOMITING. NO BLOODY STOOL PER PATIENT. PT NOT ON ANY DISTRESS AND NO COMPLAIN OF ANY PAIN AT THIS TIME. VSS, AFEBRILE, SATING 98% ON RA. SR ON TELE MONITOR, HR-88. FALL PRECAUTION IMPLEMENTED. INSTRUCTED TO CALL FOR ASSISTANCE AT ALL TIMES WHEN GETTING OUT OF BED. PATIENT VERBALIZED UNDERSTANDING WITH THE POC. CALL LIGHT WITHIN REACH. WILL CONTINUE MONITORING.
[2022-01-02 20:00] VITALS: BP 132/74
--- NOTE | 2022-01-02 22:00 | NUR ---
ADMINISTERED ALL SCHEDULED MEDICATIONS ORDERED.NO ADVERSE DRUG REACTION NOTED AND NO COMPLAIN FROM THE PATIENT. WILL CONTINUE TO MONITOR THE PATIENT.
[2022-01-03] VITALS: BP 144/71
--- NOTE | 2022-01-03 | NUR ---
PATIENT VITALS SIGNS STABLE, AFEBRILE, SATING 99% ON RA. NOT IN ANY DISTRESS AND NO COMPLAIN AT THIS TIME. SR WITH BBB ON TELE MONITOR, HR-71. CALL LIGHT WITHIN REACH. WILL CONTINUE MONITORING.
--- NOTE | 2022-01-03 02:00 | NUR ---
MADE ROUNDS. PATIENT ASLEEP AT THIS TIME. VISIBLE CHEST RISE AND FALL NOTED. PT NOT ON ANY DISTRESS. CALL LIGHT WITHIN REACH. WILL CONTINUE OBSERVATION.
[2022-01-03 04:00] VITALS: BP 135/65
--- NOTE | 2022-01-03 04:00 | NUR ---
PATIENT VITAL SIGNS STABLE, AFEBRILE, SATING 96% ON ROOM AIR. SR ON CABLE BRAIDER, HR-71. NOT ON ANY DISTRESS AND NO COMPLAIN AT THIS TIME. CALL LIGHT WITHIN REACH. WILL CONTINUE MONITORING AND POC.
--- NOTE | 2022-01-03 06:00 | NUR ---
NO ACUTE EVENT THROUGHOUT THE NIGHT. PATIENT STABLE AND NOT ON ANY DISTRESS. PATIENT HAS NO COMPLAIN AT THIS TIME. WILL ENDORSE THE PATIENT TO THE ONCOMING NURSE FOR CONTINUITY OF CARE.
[2022-01-03] MEDS: METOCLOPRAMIDE 10 MG/10 ML SYRP UDC GT SCH ×2 (06:36→12:08)
[2022-01-03 07:04] LABS: BASOPHILS % (AUTO) 0.4 % (0.0-2.0); EOSINOPHILS # (AUTO) 0.1 K/uL (0-0.4); EOSINOPHILS % (AUTO) 1.4 % (0.0-4.0); HEMATOCRIT 42.3 % (36-52); HEMOGLOBIN 13.8 g/dL (12.0-18.0); LYMPHOCYTES # (AUTO) 1.6 K/uL (2.0-11.5); LYMPHOCYTES % (AUTO) 20.1 % (20.5-51.1); MEAN CORPUSCULAR HEMOGLOBIN 31 pg (27-31); MEAN CORPUSCULAR HGB CONC 33 g/dL (33-37); NEUTROPHILS # (AUTO) 5.1 K/uL (1.8-7.7); NEUTROPHILS % (AUTO) 65.1 % (42.2-75.2); PLATELET COUNT (AUTO) 187 K/uL (140-450); RED CELL DISTRIBUTION WIDTH 12.8 % (11.6-13.7); WHITE BLOOD COUNT (AUTO) 7.8 K/uL (4.8-10.8)
--- NOTE | 2022-01-03 07:13 | NUR ---
RECEIVED REPORT FROM HANDLING TECH NURSE FOR CONTINUITY OF CARE. PATIENT ASLEEP NO DISTRESS NOTED. RESPIRATION EVEN AND NOT LABORED NO SHORTNESS OF BREATH ON ROOM AIR. IV SITE ON RIGHT FORE ARM KEYUR 20 AND LEFT FOREARM KEYUR 20 SALINE LOCK ALL SAFETY MEASURE IN PLACE.
--- NOTE | 2022-01-03 07:14 | NUR ---
ENDORSED PATIENT TO THE ONCOMING NURSE FOR CONTINUITY OF CARE. PATIENT STABLE. SIGNING OFF.
[2022-01-03 07:26] LABS: ANION GAP 10.8 (8-16); CARBON DIOXIDE 27.8 mmol/L (21-32); CHLORIDE 106 mmol/L (98-107); GLUCOSE 92 mg/dL (74-106); POTASSIUM 3.6 mmol/L (3.5-5.1); SODIUM SERUM 141 mmol/L (136-145); UREA NITROGEN, BLOOD 15 mg/dL (7-18)
[2022-01-03 08:00] VITALS: BP 127/67
--- NOTE | 2022-01-03 08:00 | NUR ---
Patient's Plan of Care was discussed and reviewed with BOILER COVERER HELPER:
[2022-01-03] MEDS: lisinopriL 10 MG TAB PO SCH (09:18)
[2022-01-03] MEDS: LACTULOSE 20 GM/30 ML UDC PO SCH (09:19)
--- NOTE | 2022-01-03 09:28 | NUR ---
PATIENT EATING BREAKFAST. GIVEN HIS ORAL MEDICATION TOLERATED WELL DENIES PAIN COMPLAIN OF NAUSEA WHEN OFFERED TO GIVE ZOFRAN PATIENT REFUSED STATED I'M OKAY.
[2022-01-03] MEDS: PANTOPRAZOLE 40 MG INJ VIAL IVP SCH (09:48)
[2022-01-03 12:00] VITALS: BP 105/66
--- NOTE | 2022-01-03 12:11 | NUR ---
GIVEN REGLAN ORDERED PATIENT ALERT AND NO DISCOMFORT NO NAUSEA OR VOMITING NOTED. CALL LIGHT WITH IN EASY REACH.
[2022-01-03] MEDS ORDERED: METO5SOL20 PO (12:19)
--- NOTE | 2022-01-03 13:11 | NUR ---
GIVEN DUE MEDICATION TREATMENT DONE. Addendum: 01/03/22 at 1312 by Jacquie De Luna LVN WRONG PATIENT.
[2022-01-03 13:58] VITALS: BP 105/66
--- NOTE | 2022-01-03 14:50 | NUR ---
PATIENT ALERT ORIENTED ON STABLE CONDITION GIVEN DISCHARGE PACKET WITH INSTRUCTION VERBALIZED UNDERSTANDING. REMOVED NAME BAND AND 2 IV SITE WITH CATHETER INTACT. WHEELED PATIENT OUT TO THEIR PRIVATE VEHICLE SAFELY WITH ALL HIS BELONGING.
== END 2022-01-03 14:50 | disposition home or self-care (01) | DRG 380 ==
LOC: MED 11:56 → MTU 15:57
PROVIDERS: ADMIT Hospitalist; ATTEND Hospitalist
PROC: 0DB48ZX Excision of Esophagogastric Junction, Via Natural or Artificial Opening Endoscopic, Diagnostic (ICD-10-PCS; principal; 2021-12-30 17:30)
DX: K22.11 Ulcer of esophagus with bleeding (principal); N17.0 Acute kidney failure with tubular necrosis; E44.1 Mild protein-calorie malnutrition; E87.1 Hypo-osmolality and hyponatremia; D72.829 Elevated white blood cell count, unspecified; Z20.822 Contact with and (suspected) exposure to COVID-19; K44.9 Diaphragmatic hernia without obstruction or gangrene; Z79.899 Other long term (current) drug therapy
CPT/HCPCS: 36415; 71045; 80048; 80053; 81001; 83735; 84100; 84484; 85025; 86886; 86900; 86901; 87081; 88305; 88313; 93005; 96374; 96375; 96376; 97112; 97116; 97163-GP; 97530; 99291; 99292; C9113; J1200; J2250; J2405; J2765; J3010; J8597; Q0092

== ENCOUNTER 2022-09-09 07:17 | Inpatient (IN) | payer OTHER ==
[~2022-09-09] VITALS: Ht 167.6 cm; Wt 57.6 kg
[~2022-09-09 07:17] MED LIST changes: +METO5SOL20 PO
[2022-09-09 07:22] VITALS: BP 173/91
[2022-09-09] MEDS ORDERED: NACL 0.9% 1,000 ML IV SCH ×2 (07:40→09:40)
[2022-09-09] MEDS ORDERED: ONDANSETRON 4 MG/2 ML VIAL IVP ONE (07:40)
[2022-09-09] MEDS ORDERED: PANTOPRAZOLE 40 MG INJ VIAL IVP ONE (07:50)
[2022-09-09 08:06] LABS: BASOPHILS # (AUTO) 0.1 K/uL (0.00-0.22); BASOPHILS % (AUTO) 0.4 % (0.0-2.0); LYMPHOCYTES # (AUTO) 0.4 K/uL (2.0-11.5); MEAN CORPUSCULAR HEMOGLOBIN 32 pg (27-31); MEAN CORPUSCULAR HGB CONC 33 g/dL (33-37); MEAN CORPUSCULAR VOLUME 96.5 fL (80-94); MONOCYTES # (AUTO) 0.7 K/uL (0.8-1.0); MONOCYTES % (AUTO) 4.5 % (1.7-9.3); NEUTROPHILS # (AUTO) 13.9 K/uL (1.8-7.7); NEUTROPHILS % (AUTO) 92.1 % (42.2-75.2); PLATELET COUNT (AUTO) 241 K/uL (140-450); RED BLOOD CELL COUNT(AUTO) 5.69 MIL/uL (4.20-6.10); WHITE BLOOD COUNT (AUTO) 15.1 K/uL (4.8-10.8)
--- NOTE | 2022-09-09 08:07 | NUR ---
87 YEARS OLD MALE PRESENTS TO ER C/O VOMITING TODAY WASSOCIATED WITH GEN WEAKNESS, NO SOB NO CP.
[2022-09-09 08:29] LABS: ALBUMIN 3.9 g/dL (3.4-5.0); ANION GAP 13.2 (8-16); ASPARTATE AMINOTRANSFERASE 24 U/L (15-37); CARBON DIOXIDE 33.9 mmol/L (21-32); CHLORIDE 101 mmol/L (98-107); CREATININE 1.6 mg/dL (0.6-1.3); GLUCOSE 195 mg/dL (74-106); LIPASE 75 U/L (73-393); POTASSIUM 4.1 mmol/L (3.5-5.1); SODIUM SERUM 144 mmol/L (136-145); TOTAL BILIRUBIN 1.4 mg/dL (0.0-1.0); UREA NITROGEN, BLOOD 21 mg/dL (7-18)
--- NOTE | 2022-09-09 08:38 | NUR ---
PATIENT RETURNS FROM CT NO ACUTE CHANGES, VSS.
[2022-09-09 09:10] LABS: APPEARANCE,URINE CLEAR (CLEAR); BILIRUBIN,URINE NEGATIVE (NEGATIVE); BLOOD, URINE 1+ (NEGATIVE); COLOR,URINE YELLOW (YELLOW); LEUKOCYTE ESTERASE ,URINE NEGATIVE (NEGATIVE); NITRITE, URINE NEGATIVE (NEGATIVE); UGLUCOSE TRACE (NEGATIVE)
[2022-09-09 09:38] LABS: RBC,URINE 0-5 /HPF (0-5)
[2022-09-09 09:39] LABS: TRICHOMONAS,URINE None Seen /HPF (None Seen); YEAST,URINE None Seen /HPF (None Seen)
[2022-09-09] MEDS ORDERED: guaiFENesin DM 200/20 MG-10 ML 10 ML UDC PO PRN (09:40)
[2022-09-09] MEDS ORDERED: DOCUSATE SODIUM 100 MG GELCAP PO PRN ×2 (09:40→15:35)
[2022-09-09] MEDS ORDERED: ONDANSETRON 4 MG/2 ML VIAL IM/IVP PRN (09:40)
[2022-09-09] MEDS ORDERED: ACETAMINOPHEN 325 MG TAB PO PRN (09:40)
[2022-09-09] MEDS ORDERED: ZOLPIDEM 5 MG TAB PO PRN (09:40)
[2022-09-09] MEDS ORDERED: POTASSIUM CHLORIDE 10 MEQ TABER PO PRN (09:40)
[2022-09-09] MEDS ORDERED: HYDROcodone/APAP 7.5/325 MG 1 TAB PO PRN (09:40)
--- NOTE | 2022-09-09 10:07 | NUR ---
PATIENT REASSESS VSS DENIES PAIN REPORT FEELING SICK, COLD, WEAK. NO VOMITING, NO NAUSEA.
[2022-09-09 10:09] LABS: MAGNESIUM 1.9 mg/dL (1.8-2.4); PHOSPHORUS 4.5 mg/dL (2.5-4.9)
[2022-09-09 10:52] LABS: BARBITURATE, URINE NEGATIVE ng/ml (NEG <=200); BENZODIAZEPINE, URINE NEGATIVE ng/mL (NEG <=200); CANNABINOID, URINE NEGATIVE ng/mL (NEG <=50); COCAINE, URINE NEGATIVE ng/mL (NEG <=300); OPIATE, URINE NEGATIVE ng/mL (NEG <=2000); PHENCYCLIDINE SCREEN,URINE NEGATIVE ng/mL (NEG <=25)
[2022-09-09 12:00] VITALS: BP 152/78
[2022-09-09] MEDS: metroNIDAZOLE 500 MG/NS PREMIX 100 ML IV SCH ×2 (13:50→20:24)
--- NOTE | 2022-09-09 14:17 | NUR ---
RECEIVED REPORT FROM ER NURSE OVER THE PHONE. PT STABLE UPON TRANSPORT AND HAS NO SIGNS OF DISTRESS. PT WAS ABLE WITH LIGHT ASSIST WALK OVER TO THE BED. PT IS A&OX4 WITH SOME BRUISING ON HIS UPPER EXTREMITIES. PTS VITALS WERE STABLE UPON ARRIVAL AND HE HAS A 18G IN HIS RAC THAT IS INFUSING NS@ 60ML/HR. PT USES URINAL AND BEDPAN; AND IS NPO EXCEPT MEDS AT THIS TIME. ALL SAFETY MEASURES IN PLACE INCLUDING BED IN LOW POSITION AND CALL LIGHT WITHIN REACH. CONTINUATION OF MOTORING AT THIS TIME.
[2022-09-09] MEDS ORDERED: METOCLOPRAMIDE 10 MG/10 ML SYRP UDC PO PRN (15:35)
[2022-09-09] MEDS: DEXT 5% / NACL 0.45% 1,000 ML IV SCH (15:50)
[2022-09-09 16:00] VITALS: BP 125/59
--- NOTE | 2022-09-09 19:22 | NUR ---
RECEIVED REPORT FROM CONTACT AND SERVICE CLERKS SUPERVISOR NURSE FOR CONTINUITY OF CARE. PT STABLE AT THIS TIME.
--- NOTE | 2022-09-09 19:30 | NUR ---
RECEIVED REPORT FROM [facility] NURSE ALFRED FOR CONTINUITY OF CARE. PATIENT IS A&O X4. PATIENT IS ON ROOM AIR, BREATHING IS NORMAL WITH SYMMETRICAL RISE AND FALL OF CHEST. IV IS A 18G RAC RUNNING D5 1/2 NS AT 50. PATIENT IS LYING IN SEMI-FOWLERS POSITION, SLEEPING. BED IS IN LOWEST POSITION, WHEELS LOCKED, CALL LIGHT IN PLACE. WILL CONTINUE TO OBSERVE PATIENT.
[2022-09-09 20:00] VITALS: BP 112/62
[2022-09-10] VITALS: BP 129/54
--- NOTE | 2022-09-10 00:15 | NUR ---
2100 IVP MEDICATION ADMINISTERED SUCCESSFULLY WITHOUT ANY ISSUES WITH IV. PATIENT WAS REMINDED THAT AT MIDNIGHT HE COULDN'T HAVE ANYMORE FOOD OR DRINK. ASKED PATIENT IF HE WANTED SOMETHING TO EAT OR DRINK BEFORE MIDNIGHT, PATIENT STATED HE WOULD LIKE MORE WATER. BROUGHT PATIENT A CONTAINER OF WATER TO DRINK. WATER WAS REMOVED AT MIDNIGHT, NO FOOD WAS IN THE ROOM. PATIENT IS NOW NPO. PATIENT IS SLEEPING. WILL CONTINUE TO OBSERVE PATIENT.
[2022-09-10 02:44] LABS: PROTHROMBIN TIME 11.3 secs (10.8-13.4)
[2022-09-10 04:00] VITALS: BP 113/53
--- NOTE | 2022-09-10 05:00 | NUR ---
PATIENT SLEPT THROUGHOUT THE NIGHT. PATIENT VOIDED 300 ML WITH NO BM. PATIENT IS STILL NPO STATUS. PATIENT'S PRE-OP CHECKLIST WAS COMPLETED BY CHARGE NURSE HANDY FOR 1030 GI EGD PROCEDURE. BREATHING IS NORMAL WITH SYMMETRICAL RISE AND FALL OF CHEST. WILL CONTINUE TO OBSERVE PATIENT.
[2022-09-10] MEDS: metroNIDAZOLE 500 MG/NS PREMIX 100 ML IV SCH ×3 (05:46→20:12)
--- NOTE | 2022-09-10 07:10 | NUR ---
RECEIVED REPORT FROM MEDICAL TECHNOLOGIST CHIEF NURSE FOR CONTINUITY OF CARE. PT STABLE AT THIS TIME.
--- NOTE | 2022-09-10 07:22 | NUR ---
ENDORSED TO DAY SHIFT NURSE TIMA FOR CONTINUITY OF CARE. PATIENT IS STABLE.
[2022-09-10 08:00] VITALS: BP 109/57
[2022-09-10 08:20] LABS: BASOPHILS % (AUTO) 0.4 % (0.0-2.0); EOSINOPHILS % (AUTO) 0.1 % (0.0-4.0); HEMATOCRIT 40.5 % (36-52); HEMOGLOBIN 13.4 g/dL (12.0-18.0); LYMPHOCYTES # (AUTO) 1.3 K/uL (2.0-11.5); LYMPHOCYTES % (AUTO) 12.4 % (20.5-51.1); MEAN CORPUSCULAR HEMOGLOBIN 32 pg (27-31); MEAN CORPUSCULAR HGB CONC 33 g/dL (33-37); MEAN CORPUSCULAR VOLUME 96.3 fL (80-94); MONOCYTES # (AUTO) 1.1 K/uL (0.8-1.0); NEUTROPHILS # (AUTO) 7.9 K/uL (1.8-7.7); NEUTROPHILS % (AUTO) 76.1 % (42.2-75.2); PLATELET COUNT (AUTO) 153 K/uL (140-450); RED BLOOD CELL COUNT(AUTO) 4.21 MIL/uL (4.20-6.10); RED CELL DISTRIBUTION WIDTH 13.2 % (11.6-13.7); WHITE BLOOD COUNT (AUTO) 10.3 K/uL (4.8-10.8)
[2022-09-10] MEDS ORDERED: fentaNYL citrate 0.05 MG/ML VIAL ONE (08:47)
[2022-09-10] MEDS ORDERED: MIDAZOLAM 5 MG/5 ML VIAL ONE (08:47)
[2022-09-10 08:52] LABS: ALBUMIN 2.4 g/dL (3.4-5.0); ANION GAP 7.6 (8-16); ASPARTATE AMINOTRANSFERASE 18 U/L (15-37); CARBON DIOXIDE 30.4 mmol/L (21-32); CHLORIDE 107 mmol/L (98-107); CREATININE 1.2 mg/dL (0.6-1.3); GLUCOSE 92 mg/dL (74-106); SODIUM SERUM 141 mmol/L (136-145); TOTAL BILIRUBIN 1.4 mg/dL (0.0-1.0); UREA NITROGEN, BLOOD 18 mg/dL (7-18)
[2022-09-10] MEDS: VITAMIN D 400 IU TAB PO SCH (09:00)
[2022-09-10] MEDS: PANTOPRAZOLE 40 MG TABEC PO SCH (09:00)
[2022-09-10] MEDS: fentaNYL citrate 0.05 MG/ML VIAL IVP ONE ×2 (09:43→10:40)
[2022-09-10] MEDS: MIDAZOLAM 5 MG/5 ML VIAL IV ONE ×2 (09:52→10:40)
--- NOTE | 2022-09-10 11:10 | NUR ---
RECEIVED POST EGD REPORT FROM TANKER TRUCK DRIVER MARY. 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 PT WAS RESTING IN THE BED WITH HIS EYES CLOSED.
[2022-09-10 12:00] VITALS: BP 111/55
[2022-09-10] MEDS: DEXT 5% / NACL 0.45% 1,000 ML IV SCH (12:12)
[2022-09-10 16:00] VITALS: BP 106/54
--- NOTE | 2022-09-10 19:16 | NUR ---
ENDORSED PATIENT TO RETAIL GIFT CARD MERCHANDISING NURSE FOR CONTINUITY OF CARE. PT STABLE AT THIS TIME.
--- NOTE | 2022-09-10 19:20 | NUR ---
RECEIVED PT IN BED AWAKE, ALERT AND ORIENTED X 4. DENIES PAIN AT THIS TIME. NO ACUTE RESPIRATORY DISTRESS NOTED. SKIN WARM AND DRY TO TOUCH. SAFETY PRECAUTIONS IN PLACE, CALL LIGHT IN REACH, ENCOURAGED TO CALL IF ASSISTANCE IS NEEDED, PT VERBALLY ACKNOWLEDGED.
[2022-09-10 20:00] VITALS: BP 106/47
--- NOTE | 2022-09-10 20:16 | NUR ---
P.T. NOTES P.T. EVAL COMPLETED; REFER TO EVAL FOR DETAILS.
--- NOTE | 2022-09-11 00:19 | NUR ---
PATIENT IS ASLEEP. BREATHING EVEN AND UNLABORED. CALL LIGHT WITHIN REACH.
[2022-09-11 04:00] VITALS: BP 115/76
[2022-09-11] MEDS: metroNIDAZOLE 500 MG/NS PREMIX 100 ML IV SCH ×2 (04:13→13:52)
--- NOTE | 2022-09-11 06:29 | NUR ---
PATIENT IS ASLEEP. ALL NEEDS ATTENDED TO. NO DISTRESS NOTED. SAFETY PRECAUTIONS MAINTAINED DURING THE SHIFT. CALL LIGHT REMAINS WITHIN REACH.
[2022-09-11 07:02] LABS: BASOPHILS # (AUTO) 0.1 K/uL (0.00-0.22); BASOPHILS % (AUTO) 0.6 % (0.0-2.0); EOSINOPHILS # (AUTO) 0.1 K/uL (0-0.4); HEMATOCRIT 41.7 % (36-52); HEMOGLOBIN 14.3 g/dL (12.0-18.0); LYMPHOCYTES # (AUTO) 1.4 K/uL (2.0-11.5); LYMPHOCYTES % (AUTO) 14.9 % (20.5-51.1); MEAN CORPUSCULAR HEMOGLOBIN 32 pg (27-31); MEAN CORPUSCULAR HGB CONC 34 g/dL (33-37); MEAN CORPUSCULAR VOLUME 94.8 fL (80-94); MONOCYTES # (AUTO) 0.8 K/uL (0.8-1.0); MONOCYTES % (AUTO) 9.2 % (1.7-9.3); NEUTROPHILS # (AUTO) 6.8 K/uL (1.8-7.7); NEUTROPHILS % (AUTO) 74.3 % (42.2-75.2); PLATELET COUNT (AUTO) 148 K/uL (140-450); RED CELL DISTRIBUTION WIDTH 12.7 % (11.6-13.7); WHITE BLOOD COUNT (AUTO) 9.2 K/uL (4.8-10.8)
[2022-09-11 07:39] LABS: ANION GAP 7.2 (8-16); CARBON DIOXIDE 30.7 mmol/L (21-32); CHLORIDE 107 mmol/L (98-107); CREATININE 1.3 mg/dL (0.6-1.3); GLUCOSE 83 mg/dL (74-106); POTASSIUM 3.9 mmol/L (3.5-5.1); SODIUM SERUM 141 mmol/L (136-145); UREA NITROGEN, BLOOD 19 mg/dL (7-18)
[2022-09-11 08:00] VITALS: BP 115/76
[2022-09-11 09:23] LABS: MAGNESIUM 1.7 mg/dL (1.8-2.4); PHOSPHORUS 2.4 mg/dL (2.5-4.9)
[2022-09-11] MEDS: VITAMIN D 400 IU TAB PO SCH (09:24)
[2022-09-11] MEDS: PANTOPRAZOLE 40 MG TABEC PO SCH (09:25)
--- NOTE | 2022-09-11 10:27 | NUR ---
PATIENT HAS BEEN SCREENED AND CATEGORIZED LOW NUTRITION RISK. PATIENT WILL BE SEEN WITHIN 7 DAYS OF ADMISSION. 09/16/[address]
[2022-09-11] MEDS ORDERED: METR-520 PO (11:02)
[2022-09-11 13:57] VITALS: BP 135/63
--- NOTE | 2022-09-11 14:40 | NUR ---
DISCHARGE PATIENT PER PCP ORDER. DISCHARGE INSTRUCTION GIVE WHILE DAUGHTER PRESENT. DISCHARGE CONSENT SIGNED, IV ACCESS & WRIST BAND REMOVED. CHARGE NURSE HELP WHEEL PATIENT OUT THE UNIT.
[2022-09-11] MEDS ORDERED: MAGNESIUM OXIDE 400 MG TAB PO SCH (15:00)
== END 2022-09-11 15:05 | disposition home or self-care (01) | DRG 380 ==
LOC: MED 07:17 → MTU 09:43
PROVIDERS: ADMIT Student in an Organized Health Care Education/Training Program; ATTEND Student in an Organized Health Care Education/Training Program
PROC: 0DB58ZX Excision of Esophagus, Via Natural or Artificial Opening Endoscopic, Diagnostic (ICD-10-PCS; principal; 2022-09-10 10:15)
DX: K22.70 Barrett's esophagus without dysplasia (principal); N17.0 Acute kidney failure with tubular necrosis; K44.9 Diaphragmatic hernia without obstruction or gangrene; E80.6 Other disorders of bilirubin metabolism; E83.52 Hypercalcemia; Z20.822 Contact with and (suspected) exposure to COVID-19; J84.10 Pulmonary fibrosis, unspecified; D72.829 Elevated white blood cell count, unspecified; K57.30 Diverticulosis of large intestine without perforation or abscess without bleeding; N28.1 Cyst of kidney, acquired; I25.10 Atherosclerotic heart disease of native coronary artery without angina pectoris; Z79.899 Other long term (current) drug therapy
CPT/HCPCS: 36415; 71045; 80048; 80053; 80305; 81001; 83690; 83735; 83880; 84100; 84484; 85025; 85610; 85730; 87040; 87081; 93005; 96361; 96374; 96375; 97116; 97163-GP; 99291; C9113; J0696; J2250; J2405; J3010; J3490; J7030; J7060

== ENCOUNTER 2023-01-25 09:04 | Inpatient (IN) | payer OTHER ==
[~2023-01-25] VITALS: Ht 170.2 cm; Wt 68.0 kg
[2023-01-25] VITALS (10 sets, daily range): BP systolic 118–137; BP diastolic 61–64; PULSE 87–105; RESP 16–20; TEMP 96.8–99.4; O2SAT 92–97
[~2023-01-25 09:04] MED LIST changes: +METR-520 PO
[2023-01-25] MEDS ORDERED: NACL 0.9% 500 ML IV SCH (09:25)
[2023-01-25 09:41] LABS: BLOOD GAS PCO2 27.8 mmHg (35-45); BLOOD GAS PH 7.442 (7.35-7.45); BLOOD GAS PO2 49.7 mmHg (75-100)
[2023-01-25 09:42] LABS: BLOOD GAS BASE EXCESS -3.5 mmol/L (-2.0-2.0); BLOOD GAS HCO3 18.5 mmol/L (22-26)
[2023-01-25 09:43] LABS: BLOOD GAS O2 SAT% 84.5 % (92.0-98.5)
[2023-01-25] MEDS ORDERED: MORPHINE SULFATE 2 MG/ML SYR IVP ONE (09:45)
[2023-01-25] MEDS ORDERED: ONDANSETRON 4 MG/2 ML VIAL IVP ONE (09:45)
[2023-01-25 09:52] LABS: BASOPHILS % (AUTO) 0.2 % (0.0-2.0); EOSINOPHILS % (AUTO) 0.1 % (0.0-4.0); HEMATOCRIT 54.1 % (36-52); HEMOGLOBIN 18.1 g/dL (12.0-18.0); LYMPHOCYTES # (AUTO) 1.4 K/uL (2.0-11.5); LYMPHOCYTES % (AUTO) 6.8 % (20.5-51.1); MEAN CORPUSCULAR HEMOGLOBIN 32 pg (27-31); MEAN CORPUSCULAR HGB CONC 34 g/dL (33-37); MEAN CORPUSCULAR VOLUME 94.4 fL (80-94); MONOCYTES # (AUTO) 1.5 K/uL (0.8-1.0); MONOCYTES % (AUTO) 7.4 % (1.7-9.3); NEUTROPHILS % (AUTO) 85.5 % (42.2-75.2); PLATELET COUNT (AUTO) 224 K/uL (140-450); RED BLOOD CELL COUNT(AUTO) 5.73 MIL/uL (4.20-6.10); RED CELL DISTRIBUTION WIDTH 13.3 % (11.6-13.7); WHITE BLOOD COUNT (AUTO) 19.9 K/uL (4.8-10.8)
[2023-01-25 10:03] LABS: ALANINE AMINOTRANSFERASE 21 U/L (12-78); ALBUMIN 3.5 g/dL (3.4-5.0); ALKALINE PHOSPHATASE 85 U/L (50-136); ANION GAP 13.1 (8-16); ASPARTATE AMINOTRANSFERASE 32 U/L (15-37); CALCIUM 9.8 mg/dL (8.5-10.1); CARBON DIOXIDE 26.1 mmol/L (21-32); CHLORIDE 104 mmol/L (98-107); CREATININE 1.4 mg/dL (0.6-1.3); GLUCOSE 138 mg/dL (74-106); POTASSIUM 4.2 mmol/L (3.5-5.1); SODIUM SERUM 139 mmol/L (136-145); TOTAL PROTEIN, SERUM 7.8 g/dL (6.4-8.2); UREA NITROGEN, BLOOD 19 mg/dL (7-18)
[2023-01-25 10:04] LABS: INR 1.08 (0.8-1.2); PARTIAL THROMBOPLASTIN TIME 24.9 secs (22-35.6); PROTHROMBIN TIME 11.3 secs (10.8-13.4)
[2023-01-25 10:09] LABS: LACTIC ACID 4.1 mmol/L (0.4-2.0)
[2023-01-25 10:28] LABS: CREATINE KINASE, TOTAL 46 U/L (39-308)
[2023-01-25] MEDS ORDERED: PIPERACILLIN/TAZOBACTAM 3.375 GM in DEXTROSE 5% 50 ML IV ONE (10:30)
[2023-01-25] MEDS ORDERED: NACL 0.9% 1,500 ML IV ONE (10:30)
[2023-01-25] MEDS ORDERED: PIPERACILLIN/TAZOBACTAM 3.375 GM VIAL IV ONE (10:45)
[2023-01-25] MEDS ORDERED: DOCUSATE SODIUM 100 MG GELCAP PO PRN (11:00)
[2023-01-25] MEDS ORDERED: MAG SULF 2000 MG/WATER PREMIX 50 ML IV PRN (11:00)
[2023-01-25] MEDS ORDERED: ONDANSETRON 4 MG/2 ML VIAL IVP PRN (11:00)
[2023-01-25] MEDS ORDERED: POTASSIUM CHLORIDE 10 MEQ TABER PO PRN (11:00)
[2023-01-25] MEDS ORDERED: ACETAMINOPHEN 325 MG TAB PO PRN (11:00)
[2023-01-25] MEDS ORDERED: RENAL DOSING PER PHARMACY MC PRN (11:30)
[2023-01-25] MEDS ORDERED: [UNRECOGNIZED DRUG - REMARK] (11:49)
[2023-01-25 11:56] LABS: BILIRUBIN,URINE NEGATIVE (NEGATIVE); BLOOD, URINE 2+ (NEGATIVE); LEUKOCYTE ESTERASE ,URINE NEGATIVE (NEGATIVE); NITRITE, URINE NEGATIVE (NEGATIVE); PROTEIN,URINE TRACE (NEGATIVE); UGLUCOSE NEGATIVE (NEGATIVE); UROBILINOGEN,URINE 0.2 EU/dL (0.2 - 1)
[2023-01-25 11:57] LABS: APPEARANCE,URINE CLEAR (CLEAR); COLOR,URINE YELLOW (YELLOW)
[2023-01-25 12:06] LABS: BACTERIA,URINE 1+ /HPF (None Seen); SQUAMOUS EPITHELIAL CELL,UR 4-10 (MOD) /LPF (0-3 (FEW)); WBC,URINE 0-5 /HPF (0-5)
[2023-01-25] MEDS ORDERED: PIPERACILLIN/TAZOBACTAM 3.375 GM in DEXTROSE 5% 50 ML IV SCH (13:00)
[2023-01-25] MEDS: DEXT 5% /NACL 0.9% 1,000 ML IV SCH (14:30)
[2023-01-25] MEDS ORDERED: PIPERACILLIN/TAZOBACTAM 2.25 GM VIAL IV ONE (20:54)
[2023-01-25] MEDS: PIPERACILLIN/TAZOBACTAM 2.25 GM in DEXTROSE 5% 50 ML IV SCH (20:57)
[2023-01-26] VITALS (17 sets, daily range): BP systolic 130–153; BP diastolic 65–80; PULSE 72–111; RESP 18–30; TEMP 97–98.9; O2SAT 93–100
[2023-01-26] MEDS: DEXT 5% /NACL 0.9% 1,000 ML IV SCH ×2 (00:09→12:18)
[2023-01-26] MEDS ORDERED: PIPERACILLIN/TAZOBACTAM 2.25 GM VIAL IV ONE (04:12)
[2023-01-26] MEDS: PIPERACILLIN/TAZOBACTAM 2.25 GM in DEXTROSE 5% 50 ML IV SCH ×3 (04:38→20:23)
[2023-01-26 05:30] LABS: BASOPHILS % (AUTO) 0.3 % (0.0-2.0); EOSINOPHILS % (AUTO) 0.4 % (0.0-4.0); HEMATOCRIT 48.1 % (36-52); HEMOGLOBIN 15.8 g/dL (12.0-18.0); LYMPHOCYTES % (AUTO) 8.2 % (20.5-51.1); MEAN CORPUSCULAR HEMOGLOBIN 31 pg (27-31); MEAN CORPUSCULAR HGB CONC 33 g/dL (33-37); MONOCYTES # (AUTO) 1.1 K/uL (0.8-1.0); MONOCYTES % (AUTO) 9.3 % (1.7-9.3); NEUTROPHILS % (AUTO) 81.8 % (42.2-75.2); PLATELET COUNT (AUTO) 158 K/uL (140-450); RED BLOOD CELL COUNT(AUTO) 5.12 MIL/uL (4.20-6.10); RED CELL DISTRIBUTION WIDTH 13.2 % (11.6-13.7); WHITE BLOOD COUNT (AUTO) 12.3 K/uL (4.8-10.8)
[2023-01-26 07:52] LABS: ANION GAP 9.4 (8-16); CALCIUM 8.4 mg/dL (8.5-10.1); CARBON DIOXIDE 25.1 mmol/L (21-32); CHLORIDE 111 mmol/L (98-107); CREATININE 1.3 mg/dL (0.6-1.3); GLUCOSE 125 mg/dL (74-106); POTASSIUM 4.5 mmol/L (3.5-5.1); SODIUM SERUM 141 mmol/L (136-145); UREA NITROGEN, BLOOD 17 mg/dL (7-18)
[2023-01-26] MEDS: FUROSEMIDE 20 MG/2 ML VIAL IVP SCH ×2 (12:16→17:27)
[2023-01-26] MEDS: LORazepam 2 MG/ML VIAL IVP PRN (17:28)
[2023-01-26] MEDS: ALBUTEROL SULFATE/IPRATROPIU 3 ML SOL IH PRN ×2 (19:15→22:36)
[2023-01-26] MEDS: ZOLPIDEM 10 MG TAB PO PRN (21:56)
[2023-01-27] VITALS (12 sets, daily range): BP systolic 115–154; BP diastolic 67–80; PULSE 79–111; RESP 16–20; TEMP 96.6–100; O2SAT 95–100
[2023-01-27 00:24] LABS: FLU A ANTIGEN negative (NEGATIVE); FLU B ANTIGEN NEGATIVE (NEGATIVE)
[2023-01-27] MEDS: PIPERACILLIN/TAZOBACTAM 2.25 GM in DEXTROSE 5% 50 ML IV SCH ×3 (04:13→20:23)
[2023-01-27 05:01] LABS: BASOPHILS % (AUTO) 0.3 % (0.0-2.0); EOSINOPHILS # (AUTO) 0.1 K/uL (0-0.4); EOSINOPHILS % (AUTO) 0.7 % (0.0-4.0); HEMATOCRIT 46.5 % (36-52); HEMOGLOBIN 15.5 g/dL (12.0-18.0); LYMPHOCYTES # (AUTO) 0.7 K/uL (2.0-11.5); LYMPHOCYTES % (AUTO) 5.9 % (20.5-51.1); MEAN CORPUSCULAR HEMOGLOBIN 31 pg (27-31); MEAN CORPUSCULAR HGB CONC 33 g/dL (33-37); MEAN CORPUSCULAR VOLUME 93.5 fL (80-94); MONOCYTES # (AUTO) 1.2 K/uL (0.8-1.0); MONOCYTES % (AUTO) 10.1 % (1.7-9.3); NEUTROPHILS # (AUTO) 10.2 K/uL (1.8-7.7); PLATELET COUNT (AUTO) 133 K/uL (140-450); RED BLOOD CELL COUNT(AUTO) 4.98 MIL/uL (4.20-6.10); RED CELL DISTRIBUTION WIDTH 13.2 % (11.6-13.7); WHITE BLOOD COUNT (AUTO) 12.3 K/uL (4.8-10.8)
[2023-01-27 05:05] LABS: ANION GAP 8.6 (8-16); CALCIUM 8.5 mg/dL (8.5-10.1); CARBON DIOXIDE 29.3 mmol/L (21-32); CHLORIDE 106 mmol/L (98-107); CREATININE 1.3 mg/dL (0.6-1.3); GLUCOSE 121 mg/dL (74-106); POTASSIUM 3.9 mmol/L (3.5-5.1); SODIUM SERUM 140 mmol/L (136-145); UREA NITROGEN, BLOOD 16 mg/dL (7-18)
[2023-01-27] MEDS: FUROSEMIDE 20 MG/2 ML VIAL IVP SCH ×2 (08:46→17:17)
[2023-01-28] VITALS (14 sets, daily range): BP systolic 106–142; BP diastolic 61–88; PULSE 89–108; RESP 16–20; TEMP 96.8–98.4; O2SAT 92–100
[2023-01-28] MEDS: PIPERACILLIN/TAZOBACTAM 2.25 GM in DEXTROSE 5% 50 ML IV SCH ×3 (04:20→20:05)
[2023-01-28 06:56] LABS: BASOPHILS % (AUTO) 0.3 % (0.0-2.0); EOSINOPHILS # (AUTO) 0.1 K/uL (0-0.4); EOSINOPHILS % (AUTO) 1.1 % (0.0-4.0); HEMATOCRIT 50.2 % (36-52); HEMOGLOBIN 16.7 g/dL (12.0-18.0); LYMPHOCYTES # (AUTO) 1.1 K/uL (2.0-11.5); LYMPHOCYTES % (AUTO) 8.7 % (20.5-51.1); MEAN CORPUSCULAR HEMOGLOBIN 31 pg (27-31); MEAN CORPUSCULAR HGB CONC 33 g/dL (33-37); MEAN CORPUSCULAR VOLUME 93.5 fL (80-94); MONOCYTES # (AUTO) 1.6 K/uL (0.8-1.0); MONOCYTES % (AUTO) 12.1 % (1.7-9.3); NEUTROPHILS # (AUTO) 10.2 K/uL (1.8-7.7); NEUTROPHILS % (AUTO) 77.8 % (42.2-75.2); PLATELET COUNT (AUTO) 140 K/uL (140-450); RED BLOOD CELL COUNT(AUTO) 5.37 MIL/uL (4.20-6.10); RED CELL DISTRIBUTION WIDTH 13.3 % (11.6-13.7); WHITE BLOOD COUNT (AUTO) 13.1 K/uL (4.8-10.8)
[2023-01-28 07:03] LABS: ANION GAP 11.3 (8-16); CALCIUM 9.2 mg/dL (8.5-10.1); CARBON DIOXIDE 27.8 mmol/L (21-32); CHLORIDE 103 mmol/L (98-107); CREATININE 1.4 mg/dL (0.6-1.3); GLUCOSE 113 mg/dL (74-106); POTASSIUM 3.1 mmol/L (3.5-5.1); SODIUM SERUM 139 mmol/L (136-145); UREA NITROGEN, BLOOD 24 mg/dL (7-18)
[2023-01-28] MEDS: FUROSEMIDE 20 MG/2 ML VIAL IVP SCH ×2 (08:26→16:24)
[2023-01-29] VITALS (9 sets, daily range): BP systolic 120–167; BP diastolic 62–87; PULSE 77–106; RESP 16–19; TEMP 94–98.6; O2SAT 94–99
[2023-01-29] MEDS: PIPERACILLIN/TAZOBACTAM 2.25 GM in DEXTROSE 5% 50 ML IV SCH ×3 (04:31→20:18)
[2023-01-29 05:09] LABS: BASOPHILS # (AUTO) 0.1 K/uL (0.00-0.22); BASOPHILS % (AUTO) 0.4 % (0.0-2.0); EOSINOPHILS # (AUTO) 0.3 K/uL (0-0.4); EOSINOPHILS % (AUTO) 2.2 % (0.0-4.0); HEMATOCRIT 49.2 % (36-52); HEMOGLOBIN 16.2 g/dL (12.0-18.0); LYMPHOCYTES # (AUTO) 1.6 K/uL (2.0-11.5); LYMPHOCYTES % (AUTO) 11.8 % (20.5-51.1); MEAN CORPUSCULAR HEMOGLOBIN 31 pg (27-31); MEAN CORPUSCULAR HGB CONC 33 g/dL (33-37); MEAN CORPUSCULAR VOLUME 93.6 fL (80-94); MONOCYTES # (AUTO) 1.9 K/uL (0.8-1.0); MONOCYTES % (AUTO) 14.2 % (1.7-9.3); NEUTROPHILS # (AUTO) 9.5 K/uL (1.8-7.7); NEUTROPHILS % (AUTO) 71.4 % (42.2-75.2); PLATELET COUNT (AUTO) 160 K/uL (140-450); RED BLOOD CELL COUNT(AUTO) 5.25 MIL/uL (4.20-6.10); RED CELL DISTRIBUTION WIDTH 13.2 % (11.6-13.7); WHITE BLOOD COUNT (AUTO) 13.3 K/uL (4.8-10.8)
[2023-01-29 05:39] LABS: ANION GAP 14.8 (8-16); CALCIUM 9.4 mg/dL (8.5-10.1); CARBON DIOXIDE 27.7 mmol/L (21-32); CHLORIDE 104 mmol/L (98-107); CREATININE 1.3 mg/dL (0.6-1.3); GLUCOSE 110 mg/dL (74-106); POTASSIUM 3.5 mmol/L (3.5-5.1); SODIUM SERUM 143 mmol/L (136-145); UREA NITROGEN, BLOOD 34 mg/dL (7-18)
[2023-01-29] MEDS: LOSARTAN 25 MG TAB PO SCH (08:13)
[2023-01-29] MEDS: carvediloL 6.25 MG TAB PO SCH (08:14)
[2023-01-29] MEDS ORDERED: Z-GUARD PASTE TP ONE (12:00)
[2023-01-29] MEDS ORDERED: QUEtiapine FUMARATE 25 MG TAB PO SCH (20:00)
[2023-01-29] MEDS: DOCUSATE SODIUM 100 MG GELCAP PO SCH (20:19)
[2023-01-30] VITALS (7 sets, daily range): BP systolic 110–167; BP diastolic 66–80; PULSE 70–87; RESP 17–24; TEMP 96.7–98.5; O2SAT 95–99
[2023-01-30] MEDS: ZOLPIDEM 10 MG TAB PO PRN (02:23)
[2023-01-30] MEDS: LORazepam 2 MG/ML VIAL IVP PRN (02:36)
[2023-01-30] MEDS: PIPERACILLIN/TAZOBACTAM 2.25 GM in DEXTROSE 5% 50 ML IV SCH ×3 (05:21→20:05)
[2023-01-30 05:39] LABS: BASOPHILS % (AUTO) 0.3 % (0.0-2.0); EOSINOPHILS # (AUTO) 0.3 K/uL (0-0.4); EOSINOPHILS % (AUTO) 2.3 % (0.0-4.0); HEMOGLOBIN 14.9 g/dL (12.0-18.0); LYMPHOCYTES # (AUTO) 1.3 K/uL (2.0-11.5); LYMPHOCYTES % (AUTO) 10.5 % (20.5-51.1); MEAN CORPUSCULAR HEMOGLOBIN 31 pg (27-31); MEAN CORPUSCULAR HGB CONC 33 g/dL (33-37); MEAN CORPUSCULAR VOLUME 93.6 fL (80-94); MONOCYTES # (AUTO) 1.6 K/uL (0.8-1.0); MONOCYTES % (AUTO) 13.2 % (1.7-9.3); NEUTROPHILS # (AUTO) 8.8 K/uL (1.8-7.7); NEUTROPHILS % (AUTO) 73.7 % (42.2-75.2); PLATELET COUNT (AUTO) 152 K/uL (140-450); RED BLOOD CELL COUNT(AUTO) 4.81 MIL/uL (4.20-6.10); RED CELL DISTRIBUTION WIDTH 13.1 % (11.6-13.7)
[2023-01-30 05:51] LABS: ANION GAP 10.3 (8-16); CALCIUM 9.3 mg/dL (8.5-10.1); CARBON DIOXIDE 30.4 mmol/L (21-32); CHLORIDE 103 mmol/L (98-107); CREATININE 1.2 mg/dL (0.6-1.3); GLUCOSE 111 mg/dL (74-106); POTASSIUM 3.7 mmol/L (3.5-5.1); SODIUM SERUM 140 mmol/L (136-145); UREA NITROGEN, BLOOD 40 mg/dL (7-18)
[2023-01-30] MEDS: ALBUTEROL SULFATE/IPRATROPIU 3 ML SOL IH PRN (07:30)
[2023-01-30] MEDS: LOSARTAN 25 MG TAB PO SCH (09:00)
[2023-01-30] MEDS: DOCUSATE SODIUM 100 MG GELCAP PO SCH ×2 (09:00→20:05)
[2023-01-30] MEDS ORDERED: HALOPERIDOL IM 5 MG/ML VIAL IM ONE (09:25)
[2023-01-30] MEDS ORDERED: HALOPERIDOL IM 5 MG/ML VIAL IVP PRN (09:35)
[2023-01-30] MEDS: ATORVASTATIN 20 MG TAB PO SCH (10:31)
[2023-01-30] MEDS: carvediloL 6.25 MG TAB PO SCH (10:31)
[2023-01-30] MEDS: FUROSEMIDE 20 MG TAB PO SCH (10:32)
[2023-01-30] MEDS ORDERED: REGADENOSON 0.4 MG/5 ML SYR IV ONE (11:30)
[2023-01-30] MEDS ORDERED: LORazepam 2 MG/ML VIAL IVP PRN (13:00)
[2023-01-30] MEDS: PANTOPRAZOLE 40 MG INJ VIAL IVP SCH (15:13)
[2023-01-30] MEDS: QUEtiapine FUMARATE 25 MG TAB PO SCH (20:05)
[2023-01-31] VITALS (9 sets, daily range): BP systolic 126–160; BP diastolic 57–84; PULSE 73–88; RESP 18; TEMP 97.2–98.5; O2SAT 92–100
[2023-01-31] MEDS: PIPERACILLIN/TAZOBACTAM 2.25 GM in DEXTROSE 5% 50 ML IV SCH ×3 (04:22→21:01)
[2023-01-31 05:58] LABS: BASOPHILS # (AUTO) 0.1 K/uL (0.00-0.22); BASOPHILS % (AUTO) 0.5 % (0.0-2.0); EOSINOPHILS # (AUTO) 0.2 K/uL (0-0.4); EOSINOPHILS % (AUTO) 1.7 % (0.0-4.0); HEMATOCRIT 46.3 % (36-52); HEMOGLOBIN 15.4 g/dL (12.0-18.0); LYMPHOCYTES # (AUTO) 1.1 K/uL (2.0-11.5); LYMPHOCYTES % (AUTO) 10.1 % (20.5-51.1); MEAN CORPUSCULAR HEMOGLOBIN 31 pg (27-31); MEAN CORPUSCULAR HGB CONC 33 g/dL (33-37); MEAN CORPUSCULAR VOLUME 94.4 fL (80-94); MONOCYTES # (AUTO) 1.2 K/uL (0.8-1.0); MONOCYTES % (AUTO) 11.4 % (1.7-9.3); NEUTROPHILS # (AUTO) 7.9 K/uL (1.8-7.7); NEUTROPHILS % (AUTO) 76.3 % (42.2-75.2); PLATELET COUNT (AUTO) 182 K/uL (140-450); RED BLOOD CELL COUNT(AUTO) 4.91 MIL/uL (4.20-6.10); WHITE BLOOD COUNT (AUTO) 10.4 K/uL (4.8-10.8)
[2023-01-31 06:16] LABS: ANION GAP 11.4 (8-16); CALCIUM 9.6 mg/dL (8.5-10.1); CARBON DIOXIDE 29.1 mmol/L (21-32); CHLORIDE 105 mmol/L (98-107); CREATININE 1.1 mg/dL (0.6-1.3); GLUCOSE 96 mg/dL (74-106); POTASSIUM 3.5 mmol/L (3.5-5.1); SODIUM SERUM 142 mmol/L (136-145); UREA NITROGEN, BLOOD 30 mg/dL (7-18)
[2023-01-31] MEDS ORDERED: ROCURONIUM 50 MG/5 ML VIAL IV ONE ×2 (07:00→08:10)
[2023-01-31] MEDS ORDERED: ACETAMINOPHEN EXTRA STRENGTH 500 MG TAB ONE (07:00)
[2023-01-31] MEDS ORDERED: SUCCINYLCHOLINE CHLORIDE 200 MG/10 ML VIAL IVP ONE ×2 (07:00→08:10)
[2023-01-31] MEDS ORDERED: DEFEROXAMINE 500 MG VIAL ONE (07:00)
[2023-01-31] MEDS ORDERED: ONDANSETRON 4 MG/2 ML VIAL ONE ×2 (07:00→08:10)
[2023-01-31] MEDS ORDERED: DEXAMETHASONE 4 MG/ML VIAL ONE ×2 (07:00→08:10)
[2023-01-31] MEDS ORDERED: fentaNYL citrate 0.05 MG/ML - 50mL vial IV ONE (07:00)
[2023-01-31] MEDS ORDERED: SUGAMMADEX SODIUM 200 MG/2 ML VIAL IV ONE ×2 (07:00→09:16)
[2023-01-31] MEDS ORDERED: VANCOMYCIN 1,000 MG VIAL ONE (07:10)
[2023-01-31] MEDS ORDERED: TRANEXAMIC ACID 1,000 MG/10 ML VIAL ONE (07:11)
[2023-01-31] MEDS ORDERED: BUPIVACAINE-MPF 0.25% 30 ML VIAL INJ ONE (07:12)
[2023-01-31] MEDS ORDERED: ceFAZolin 2,000 MG VIAL ONE (07:39)
[2023-01-31] MEDS ORDERED: fentaNYL citrate 0.05 MG/ML VIAL ONE ×2 (08:08→08:58)
[2023-01-31] MEDS ORDERED: PROPOFOL 200 MG/20 ML VIAL IV ONE (08:10)
[2023-01-31] MEDS: DOCUSATE SODIUM 100 MG GELCAP PO SCH ×2 (09:00→20:59)
[2023-01-31] MEDS: carvediloL 6.25 MG TAB PO SCH ×2 (09:00→21:00)
[2023-01-31] MEDS: FUROSEMIDE 20 MG TAB PO SCH (09:00)
[2023-01-31] MEDS: LOSARTAN 25 MG TAB PO SCH (09:00)
[2023-01-31] MEDS: ATORVASTATIN 20 MG TAB PO SCH (09:00)
[2023-01-31] MEDS: QUEtiapine FUMARATE 25 MG TAB PO SCH ×2 (09:00→21:00)
[2023-01-31] MEDS ORDERED: ACETAMINOPHEN 100 ML IV ONE (09:53)
[2023-01-31] MEDS ORDERED: LABETALOL 20 MG/4 ML VIAL IVP ONE (09:53)
[2023-01-31] MEDS ORDERED: hydrALAZINE 20 MG/ML VIAL ONE (10:37)
[2023-01-31] MEDS ORDERED: hydrALAZINE 20 MG/ML VIAL IVP PRN ×2 (10:45→11:06)
[2023-01-31] MEDS: PANTOPRAZOLE 40 MG INJ VIAL IVP SCH (12:08)
[2023-01-31] MEDS: DEXT 5% / NACL 0.45% 1,000 ML IV SCH (18:22)
[2023-02-01] VITALS (13 sets, daily range): BP systolic 108–143; BP diastolic 51–72; PULSE 70–99; RESP 16–21; TEMP 37; O2SAT 95–100
[2023-02-01] MEDS: MORPHINE SULFATE 2 MG/ML SYR IVP PRN ×2 (02:40→09:59)
[2023-02-01] MEDS: PIPERACILLIN/TAZOBACTAM 2.25 GM in DEXTROSE 5% 50 ML IV SCH ×3 (05:07→20:23)
[2023-02-01 05:32] LABS: BASOPHILS % (AUTO) 0.2 % (0.0-2.0); HEMATOCRIT 42.6 % (36-52); HEMOGLOBIN 13.9 g/dL (12.0-18.0); LYMPHOCYTES # (AUTO) 0.8 K/uL (2.0-11.5); LYMPHOCYTES % (AUTO) 5.8 % (20.5-51.1); MEAN CORPUSCULAR HEMOGLOBIN 31 pg (27-31); MEAN CORPUSCULAR HGB CONC 33 g/dL (33-37); MEAN CORPUSCULAR VOLUME 94.9 fL (80-94); MONOCYTES % (AUTO) 14.3 % (1.7-9.3); NEUTROPHILS # (AUTO) 10.9 K/uL (1.8-7.7); NEUTROPHILS % (AUTO) 79.7 % (42.2-75.2); PLATELET COUNT (AUTO) 177 K/uL (140-450); RED BLOOD CELL COUNT(AUTO) 4.49 MIL/uL (4.20-6.10); WHITE BLOOD COUNT (AUTO) 13.7 K/uL (4.8-10.8)
[2023-02-01 05:45] LABS: CARBON DIOXIDE 31.6 mmol/L (21-32); CHLORIDE 107 mmol/L (98-107); CREATININE 1.1 mg/dL (0.6-1.3); GLUCOSE 122 mg/dL (74-106); POTASSIUM 3.6 mmol/L (3.5-5.1); SODIUM SERUM 141 mmol/L (136-145); UREA NITROGEN, BLOOD 27 mg/dL (7-18)
[2023-02-01] MEDS: ECOTRIN 81 MG TABEC PO SCH (09:56)
[2023-02-01] MEDS: carvediloL 6.25 MG TAB PO SCH ×2 (09:56→20:20)
[2023-02-01] MEDS: LOSARTAN 25 MG TAB PO SCH (09:56)
[2023-02-01] MEDS: FUROSEMIDE 20 MG TAB PO SCH (09:56)
[2023-02-01] MEDS: ATORVASTATIN 20 MG TAB PO SCH (09:56)
[2023-02-01] MEDS: QUEtiapine FUMARATE 25 MG TAB PO SCH ×2 (09:57→20:20)
[2023-02-01] MEDS: DOCUSATE SODIUM 100 MG GELCAP PO SCH ×2 (09:57→20:18)
[2023-02-01] MEDS: PANTOPRAZOLE 40 MG INJ VIAL IVP SCH (09:59)
[2023-02-01] MEDS: DEXT 5% / NACL 0.45% 1,000 ML IV SCH (10:00)
[2023-02-01] MEDS ORDERED: KCL 20 MEQ IN 100 mL PREMIX 200 ML IV ONE (10:40)
[2023-02-01] MEDS ORDERED: POTASSIUM CHLORIDE 10 MEQ TABER PO ONE (10:40)
[2023-02-01] MEDS: ZOLPIDEM 10 MG TAB PO PRN (20:28)
[2023-02-01] MEDS: HALOPERIDOL IM 5 MG/ML VIAL IM PRN (20:36)
[2023-02-02] VITALS (8 sets, daily range): BP systolic 124–154; BP diastolic 53–82; PULSE 71–89; RESP 18–20; TEMP 97.4–98.8; O2SAT 92–100
[2023-02-02] MEDS: DEXT 5% / NACL 0.45% 1,000 ML IV SCH (03:05)
[2023-02-02 05:32] LABS: BASOPHILS % (AUTO) 0.2 % (0.0-2.0); EOSINOPHILS # (AUTO) 0.1 K/uL (0-0.4); EOSINOPHILS % (AUTO) 0.4 % (0.0-4.0); HEMATOCRIT 41.8 % (36-52); HEMOGLOBIN 13.7 g/dL (12.0-18.0); LYMPHOCYTES # (AUTO) 1.3 K/uL (2.0-11.5); LYMPHOCYTES % (AUTO) 9.7 % (20.5-51.1); MEAN CORPUSCULAR HEMOGLOBIN 31 pg (27-31); MEAN CORPUSCULAR HGB CONC 33 g/dL (33-37); MEAN CORPUSCULAR VOLUME 94.9 fL (80-94); MONOCYTES # (AUTO) 1.7 K/uL (0.8-1.0); MONOCYTES % (AUTO) 12.6 % (1.7-9.3); NEUTROPHILS # (AUTO) 10.7 K/uL (1.8-7.7); NEUTROPHILS % (AUTO) 77.1 % (42.2-75.2); PLATELET COUNT (AUTO) 181 K/uL (140-450); RED BLOOD CELL COUNT(AUTO) 4.41 MIL/uL (4.20-6.10); RED CELL DISTRIBUTION WIDTH 13.1 % (11.6-13.7); WHITE BLOOD COUNT (AUTO) 13.9 K/uL (4.8-10.8)
[2023-02-02 06:20] LABS: ANION GAP 8.1 (8-16); CALCIUM 9.3 mg/dL (8.5-10.1); CARBON DIOXIDE 33.6 mmol/L (21-32); CHLORIDE 104 mmol/L (98-107); CREATININE 1.1 mg/dL (0.6-1.3); GLUCOSE 93 mg/dL (74-106); POTASSIUM 3.7 mmol/L (3.5-5.1); SODIUM SERUM 142 mmol/L (136-145); UREA NITROGEN, BLOOD 22 mg/dL (7-18)
[2023-02-02] MEDS: PIPERACILLIN/TAZOBACTAM 2.25 GM in DEXTROSE 5% 50 ML IV SCH ×2 (06:24→13:57)
[2023-02-02] MEDS ORDERED: levoFLOXacin 500 MG TAB PO SCH (09:00)
[2023-02-02] MEDS: PANTOPRAZOLE 40 MG INJ VIAL IVP SCH (09:00)
[2023-02-02] MEDS: ATORVASTATIN 20 MG TAB PO SCH (09:01)
[2023-02-02] MEDS: FUROSEMIDE 20 MG TAB PO SCH (09:02)
[2023-02-02] MEDS: ECOTRIN 81 MG TABEC PO SCH (09:02)
[2023-02-02] MEDS: carvediloL 6.25 MG TAB PO SCH (09:02)
[2023-02-02] MEDS: LOSARTAN 25 MG TAB PO SCH (09:02)
[2023-02-02] MEDS: DOCUSATE SODIUM 100 MG GELCAP PO SCH (09:02)
[2023-02-02] MEDS: QUEtiapine FUMARATE 25 MG TAB PO SCH (09:04)
[2023-02-02] MEDS: MORPHINE SULFATE 2 MG/ML SYR IVP PRN (09:50)
[2023-02-02] MEDS: HALOPERIDOL IM 5 MG/ML VIAL IM PRN (13:58)
[2023-02-03] MEDS ORDERED: levoFLOXacin 250 MG TAB PO SCH (09:00)
== END 2023-02-02 19:15 | DRG 521 ==
LOC: MED 09:04 → MTU 11:10
PROVIDERS: ADMIT General Practice; ATTEND General Practice
PROC: 0SRR0JA Replacement of Right Hip Joint, Femoral Surface with Synthetic Substitute, Uncemented, Open Approach (ICD-10-PCS; principal; 2023-01-31 07:30)
DX: S72.001A Fracture of unspecified part of neck of right femur, initial encounter for closed fracture (principal); I21.4 Non-ST elevation (NSTEMI) myocardial infarction; J69.0 Pneumonitis due to inhalation of food and vomit; I50.33 Acute on chronic diastolic (congestive) heart failure; N17.0 Acute kidney failure with tubular necrosis; J96.01 Acute respiratory failure with hypoxia; I13.0 Hypertensive heart and chronic kidney disease with heart failure and stage 1 through stage 4 chronic kidney disease, or unspecified chronic kidney disease; E87.20 Acidosis, unspecified; Z20.822 Contact with and (suspected) exposure to COVID-19; I27.20 Pulmonary hypertension, unspecified; Z96.641 Presence of right artificial hip joint; J32.3 Chronic sphenoidal sinusitis; J84.10 Pulmonary fibrosis, unspecified; N18.9 Chronic kidney disease, unspecified; W18.39XA Other fall on same level, initial encounter; Y93.89 Activity, other specified; Y99.8 Other external cause status; Y92.009 Unspecified place in unspecified non-institutional (private) residence as the place of occurrence of the external cause
CPT/HCPCS: 36415; 36600; 70450; 71045; 72170; 73502; 76604; 80048; 80053; 81001; 82140; 82550; 82803; 82948; 83036; 83605; 83735; 83880; 84484; 85025; 85610; 85730; 87040; 87081; 87086; 88305; 92526; 93005; 93017; 94640; 96365; 96375; 97112; 97163-GP; 97530; 99291; A9500; A9502; C1776; C9113; J0330; J0360; J0895; J1100; J1630; J1644; J1940; J2060; J2270; J2405; J2543; J2704; J2785; J3010; J3370; J3475; J3490; J7030; J7060; J7120; Q0092

== ENCOUNTER 2023-02-07 16:04 | Inpatient (IN) | payer OTHER ==
[~2023-02-07] VITALS: Ht 172.7 cm; Wt 65.8 kg
[~2023-02-07 16:04] MED LIST changes: -METO5SOL20 PO; -METR-520 PO; -PANT40EC PO; +[UNRECOGNIZED DRUG - REMARK]
[2023-02-07 16:06] VITALS: BP 109/63; PULSE 85; RESP 18; TEMP 97.7; O2SAT 99
[2023-02-07 17:58] LABS: INR 1.15 (0.8-1.2)
[2023-02-07 18:02] LABS: ALANINE AMINOTRANSFERASE 16 U/L (12-78); ALBUMIN 2.2 g/dL (3.4-5.0); ALKALINE PHOSPHATASE 58 U/L (50-136); ANION GAP 8.8 (8-16); ASPARTATE AMINOTRANSFERASE 30 U/L (15-37); CALCIUM 9.5 mg/dL (8.5-10.1); CARBON DIOXIDE 31.8 mmol/L (21-32); CHLORIDE 108 mmol/L (98-107); CREATININE 1.3 mg/dL (0.6-1.3); GLUCOSE 127 mg/dL (74-106); LIPASE 42 U/L (16-77); POTASSIUM 3.6 mmol/L (3.5-5.1); TOTAL BILIRUBIN 1.3 mg/dL (0.0-1.0); TOTAL PROTEIN, SERUM 6.7 g/dL (6.4-8.2); UREA NITROGEN, BLOOD 29 mg/dL (7-18)
[2023-02-07 18:03] LABS: SODIUM SERUM 145 mmol/L (136-145)
[2023-02-07 18:17] LABS: BASOPHILS # (AUTO) 0.1 K/uL (0.00-0.22); BASOPHILS % (AUTO) 0.8 % (0.0-2.0); EOSINOPHILS # (AUTO) 0.1 K/uL (0-0.4); EOSINOPHILS % (AUTO) 0.3 % (0.0-4.0); HEMATOCRIT 45.8 % (36-52); HEMOGLOBIN 14.6 g/dL (12.0-18.0); LYMPHOCYTES # (AUTO) 0.6 K/uL (2.0-11.5); LYMPHOCYTES % (AUTO) 3.3 % (20.5-51.1); MEAN CORPUSCULAR HEMOGLOBIN 31 pg (27-31); MEAN CORPUSCULAR HGB CONC 32 g/dL (33-37); MEAN CORPUSCULAR VOLUME 96.6 fL (80-94); MONOCYTES # (AUTO) 1.7 K/uL (0.8-1.0); MONOCYTES % (AUTO) 8.7 % (1.7-9.3); NEUTROPHILS # (AUTO) 17.1 K/uL (1.8-7.7); NEUTROPHILS % (AUTO) 86.9 % (42.2-75.2); PLATELET COUNT (AUTO) 290 K/uL (140-450); RED BLOOD CELL COUNT(AUTO) 4.74 MIL/uL (4.20-6.10); WHITE BLOOD COUNT (AUTO) 19.6 K/uL (4.8-10.8)
[2023-02-07 18:22] VITALS: O2SAT 99
[2023-02-07] MEDS ORDERED: PIPERACILLIN/TAZOBACTAM 3.375 GM in DEXTROSE 5% 50 ML IV ONE (19:05)
[2023-02-07] MEDS ORDERED: VANCOMYCIN 1,000 MG in DEXTROSE 5% 250 ML IV ONE (19:05)
[2023-02-07] MEDS ORDERED: PIPERACILLIN/TAZOBACTAM 3.375 GM VIAL IV ONE (20:18)
[2023-02-07] MEDS ORDERED: NACL 0.9% 1,000 ML IV ONE ×2 (20:30→21:25)
[2023-02-07] MEDS ORDERED: VANCOMYCIN 1,000 MG VIAL ONE (20:50)
[2023-02-07 20:58] LABS: BILIRUBIN,URINE 1+ (NEGATIVE); BLOOD, URINE 3+ (NEGATIVE); LEUKOCYTE ESTERASE ,URINE NEGATIVE (NEGATIVE); NITRITE, URINE POSITIVE (NEGATIVE); PH,URINE 5.5 (5.0-9.0); PROTEIN,URINE TRACE (NEGATIVE); UGLUCOSE NEGATIVE (NEGATIVE); UROBILINOGEN,URINE 0.2 EU/dL (0.2 - 1)
[2023-02-07 21:08] LABS: APPEARANCE,URINE CLOUDY (CLEAR); COLOR,URINE ORANGE (YELLOW)
[2023-02-07 21:10] LABS: BACTERIA,URINE 10-30 (MOD) /HPF (None Seen); MUCUS,URINE 1+ /LPF (None Seen); SQUAMOUS EPITHELIAL CELL,UR 0-3 (FEW) /LPF (0-3 (FEW)); WBC,URINE 0-5 /HPF (0-5)
[2023-02-07 21:11] LABS: RBC,URINE 11-20 (MOD) /HPF (0-5)
[2023-02-07 21:15] LABS: LACTIC ACID 3.8 mmol/L (0.4-2.0)
[2023-02-07 21:17] LABS: ICTOTEST NEGATIVE (NEGATIVE)
[2023-02-07] MEDS ORDERED: ACETAMINOPHEN 325 MG TAB PO PRN (21:35)
[2023-02-07] MEDS ORDERED: ZOLPIDEM 5 MG TAB PO PRN (21:35)
[2023-02-07] MEDS ORDERED: guaiFENesin DM 200/20 MG-10 ML 10 ML UDC PO PRN (21:35)
[2023-02-07] MEDS ORDERED: DOCUSATE SODIUM 100 MG GELCAP PO PRN (21:35)
[2023-02-07] MEDS ORDERED: HYDROcodone/APAP 7.5/325 MG 1 TAB PO PRN (21:35)
[2023-02-07] MEDS ORDERED: ONDANSETRON 4 MG/2 ML VIAL IM/IVP PRN (21:35)
[2023-02-07] MEDS: NACL 0.9% 1,000 ML IV SCH (22:29)
[2023-02-07] MEDS ORDERED: QUET25TA PO (22:57)
[2023-02-07] MEDS ORDERED: PANT40EC PO (22:57)
[2023-02-07 23:15] VITALS: PULSE 73; RESP 18; O2SAT 99
[2023-02-08] VITALS (8 sets, daily range): BP systolic 102–133; BP diastolic 44–57; PULSE 59–79; RESP 17–18; TEMP 96.7–98.5; O2SAT 96–100
[2023-02-08] MEDS ORDERED: PIPERACILLIN/TAZOBACTAM 3.375 GM VIAL IV ONE (04:24)
[2023-02-08] MEDS: PIPERACILLIN/TAZOBACTAM 3.375 GM in DEXTROSE 5% 50 ML IV SCH ×3 (04:35→20:04)
[2023-02-08 06:35] LABS: ALANINE AMINOTRANSFERASE 18 U/L (12-78); ALBUMIN 1.7 g/dL (3.4-5.0); ALKALINE PHOSPHATASE 48 U/L (50-136); ANION GAP 7.7 (8-16); ASPARTATE AMINOTRANSFERASE 30 U/L (15-37); CALCIUM 8.3 mg/dL (8.5-10.1); CARBON DIOXIDE 29.8 mmol/L (21-32); CHLORIDE 114 mmol/L (98-107); CREATININE 1.3 mg/dL (0.6-1.3); GLUCOSE 120 mg/dL (74-106); POTASSIUM 3.5 mmol/L (3.5-5.1); SODIUM SERUM 148 mmol/L (136-145); TOTAL BILIRUBIN 1.4 mg/dL (0.0-1.0); TOTAL PROTEIN, SERUM 5.2 g/dL (6.4-8.2); UREA NITROGEN, BLOOD 28 mg/dL (7-18)
[2023-02-08 06:41] LABS: BASOPHILS % (AUTO) 0.2 % (0.0-2.0); EOSINOPHILS # (AUTO) 0.1 K/uL (0-0.4); EOSINOPHILS % (AUTO) 0.5 % (0.0-4.0); HEMATOCRIT 35.8 % (36-52); HEMOGLOBIN 11.7 g/dL (12.0-18.0); LYMPHOCYTES # (AUTO) 0.5 K/uL (2.0-11.5); LYMPHOCYTES % (AUTO) 3.3 % (20.5-51.1); MEAN CORPUSCULAR HEMOGLOBIN 31 pg (27-31); MEAN CORPUSCULAR HGB CONC 33 g/dL (33-37); MEAN CORPUSCULAR VOLUME 95.1 fL (80-94); MONOCYTES # (AUTO) 1.1 K/uL (0.8-1.0); NEUTROPHILS # (AUTO) 14.5 K/uL (1.8-7.7); PLATELET COUNT (AUTO) 250 K/uL (140-450); RED BLOOD CELL COUNT(AUTO) 3.76 MIL/uL (4.20-6.10); RED CELL DISTRIBUTION WIDTH 13.5 % (11.6-13.7); WHITE BLOOD COUNT (AUTO) 16.3 K/uL (4.8-10.8)
[2023-02-08] MEDS: PANTOPRAZOLE 40 MG TABEC PO SCH (09:28)
[2023-02-08] MEDS: NACL 0.9% 1,000 ML IV SCH (14:15)
[2023-02-08] MEDS: VANCOMYCIN 1,000 MG in DEXTROSE 5% 250 ML IV SCH (20:49)
[2023-02-08] MEDS: VANCOMYCIN PER PHARMACY MC SCH ×2 (20:53→20:54)
[2023-02-09] VITALS (12 sets, daily range): BP systolic 109–131; BP diastolic 47–68; PULSE 56–75; RESP 16–20; TEMP 97–97.8; O2SAT 92–100
[2023-02-09] MEDS: PIPERACILLIN/TAZOBACTAM 3.375 GM in DEXTROSE 5% 50 ML IV SCH ×3 (04:55→20:07)
[2023-02-09 06:28] LABS: BASOPHILS # (AUTO) 0.1 K/uL (0.00-0.22); BASOPHILS % (AUTO) 0.6 % (0.0-2.0); EOSINOPHILS # (AUTO) 0.3 K/uL (0-0.4); EOSINOPHILS % (AUTO) 2.3 % (0.0-4.0); HEMATOCRIT 34.2 % (36-52); HEMOGLOBIN 11.1 g/dL (12.0-18.0); LYMPHOCYTES # (AUTO) 0.9 K/uL (2.0-11.5); LYMPHOCYTES % (AUTO) 8.1 % (20.5-51.1); MEAN CORPUSCULAR HEMOGLOBIN 31 pg (27-31); MEAN CORPUSCULAR HGB CONC 32 g/dL (33-37); MEAN CORPUSCULAR VOLUME 94.7 fL (80-94); MONOCYTES # (AUTO) 1.3 K/uL (0.8-1.0); MONOCYTES % (AUTO) 11.4 % (1.7-9.3); NEUTROPHILS # (AUTO) 8.9 K/uL (1.8-7.7); NEUTROPHILS % (AUTO) 77.6 % (42.2-75.2); PLATELET COUNT (AUTO) 259 K/uL (140-450); RED BLOOD CELL COUNT(AUTO) 3.61 MIL/uL (4.20-6.10); RED CELL DISTRIBUTION WIDTH 13.1 % (11.6-13.7); WHITE BLOOD COUNT (AUTO) 11.5 K/uL (4.8-10.8)
[2023-02-09 06:43] LABS: ALANINE AMINOTRANSFERASE 16 U/L (12-78); ALBUMIN 1.6 g/dL (3.4-5.0); ALKALINE PHOSPHATASE 50 U/L (50-136); ANION GAP 7.1 (8-16); ASPARTATE AMINOTRANSFERASE 31 U/L (15-37); CALCIUM 8.2 mg/dL (8.5-10.1); CARBON DIOXIDE 29.1 mmol/L (21-32); CHLORIDE 114 mmol/L (98-107); CREATININE 1.1 mg/dL (0.6-1.3); GLUCOSE 145 mg/dL (74-106); POTASSIUM 3.2 mmol/L (3.5-5.1); SODIUM SERUM 147 mmol/L (136-145); TOTAL BILIRUBIN 0.9 mg/dL (0.0-1.0); TOTAL PROTEIN, SERUM 4.9 g/dL (6.4-8.2); UREA NITROGEN, BLOOD 25 mg/dL (7-18)
[2023-02-09] MEDS: NACL 0.9% 1,000 ML IV SCH ×2 (06:55→23:35)
[2023-02-09] MEDS: PANTOPRAZOLE 40 MG TABEC PO SCH (09:16)
[2023-02-09] MEDS: VANCOMYCIN PER PHARMACY MC SCH (09:16)
[2023-02-09] MEDS: POTASSIUM CHLORIDE 10 MEQ TABER PO PRN (09:16)
[2023-02-09] MEDS ORDERED: GAUZE TP SCH (11:25)
[2023-02-09] MEDS: VANCOMYCIN 1,000 MG in DEXTROSE 5% 250 ML IV SCH (21:05)
[2023-02-10] VITALS (12 sets, daily range): BP systolic 111–135; BP diastolic 55–72; PULSE 57–72; RESP 15–20; TEMP 97.1–98.7; O2SAT 92–99
[2023-02-10] MEDS: PIPERACILLIN/TAZOBACTAM 3.375 GM in DEXTROSE 5% 50 ML IV SCH ×3 (04:35→20:07)
[2023-02-10 07:01] LABS: BASOPHILS % (AUTO) 0.4 % (0.0-2.0); EOSINOPHILS # (AUTO) 0.2 K/uL (0-0.4); EOSINOPHILS % (AUTO) 2.1 % (0.0-4.0); HEMATOCRIT 34.7 % (36-52); HEMOGLOBIN 11.5 g/dL (12.0-18.0); LYMPHOCYTES # (AUTO) 1.3 K/uL (2.0-11.5); LYMPHOCYTES % (AUTO) 12.3 % (20.5-51.1); MEAN CORPUSCULAR HEMOGLOBIN 31 pg (27-31); MEAN CORPUSCULAR HGB CONC 33 g/dL (33-37); MEAN CORPUSCULAR VOLUME 94.2 fL (80-94); MONOCYTES # (AUTO) 1.2 K/uL (0.8-1.0); MONOCYTES % (AUTO) 10.9 % (1.7-9.3); NEUTROPHILS # (AUTO) 7.9 K/uL (1.8-7.7); NEUTROPHILS % (AUTO) 74.3 % (42.2-75.2); PLATELET COUNT (AUTO) 264 K/uL (140-450); RED BLOOD CELL COUNT(AUTO) 3.68 MIL/uL (4.20-6.10); RED CELL DISTRIBUTION WIDTH 12.9 % (11.6-13.7); WHITE BLOOD COUNT (AUTO) 10.6 K/uL (4.8-10.8)
[2023-02-10 07:15] LABS: ALANINE AMINOTRANSFERASE 23 U/L (12-78); ALBUMIN 1.6 g/dL (3.4-5.0); ALKALINE PHOSPHATASE 52 U/L (50-136); ANION GAP 8.4 (8-16); ASPARTATE AMINOTRANSFERASE 39 U/L (15-37); CALCIUM 8.2 mg/dL (8.5-10.1); CARBON DIOXIDE 27.7 mmol/L (21-32); CHLORIDE 111 mmol/L (98-107); GLUCOSE 109 mg/dL (74-106); POTASSIUM 3.1 mmol/L (3.5-5.1); SODIUM SERUM 144 mmol/L (136-145); TOTAL BILIRUBIN 0.8 mg/dL (0.0-1.0); TOTAL PROTEIN, SERUM 4.9 g/dL (6.4-8.2); UREA NITROGEN, BLOOD 14 mg/dL (7-18)
[2023-02-10] MEDS: PANTOPRAZOLE 40 MG TABEC PO SCH (08:52)
[2023-02-10] MEDS: POTASSIUM CHLORIDE 10 MEQ TABER PO PRN (08:52)
[2023-02-10] MEDS: VANCOMYCIN PER PHARMACY MC SCH (08:53)
[2023-02-10] MEDS ORDERED: Z-GUARD PASTE TP ONE (13:46)
[2023-02-10] MEDS: Z-GUARD PASTE TP SCH (13:54)
[2023-02-10] MEDS: NACL 0.9% 1,000 ML IV SCH (13:56)
[2023-02-10] MEDS: VANCOMYCIN 1,000 MG in DEXTROSE 5% 250 ML IV SCH (21:03)
[2023-02-11] VITALS: BP 134/64; PULSE 69; RESP 18; TEMP 98.7; O2SAT 97
[2023-02-11 04:00] VITALS: BP 158/66; PULSE 69; PULSE 84; RESP 18; TEMP 98.4; O2SAT 97
[2023-02-11] MEDS: PIPERACILLIN/TAZOBACTAM 3.375 GM in DEXTROSE 5% 50 ML IV SCH ×2 (05:48→13:07)
[2023-02-11 07:30] LABS: BASOPHILS % (AUTO) 0.4 % (0.0-2.0); EOSINOPHILS # (AUTO) 0.2 K/uL (0-0.4); EOSINOPHILS % (AUTO) 1.3 % (0.0-4.0); HEMATOCRIT 39.8 % (36-52); HEMOGLOBIN 13.2 g/dL (12.0-18.0); LYMPHOCYTES # (AUTO) 1.5 K/uL (2.0-11.5); LYMPHOCYTES % (AUTO) 12.5 % (20.5-51.1); MEAN CORPUSCULAR HEMOGLOBIN 31 pg (27-31); MEAN CORPUSCULAR HGB CONC 33 g/dL (33-37); MEAN CORPUSCULAR VOLUME 93.5 fL (80-94); MONOCYTES # (AUTO) 1.3 K/uL (0.8-1.0); MONOCYTES % (AUTO) 10.3 % (1.7-9.3); NEUTROPHILS # (AUTO) 9.3 K/uL (1.8-7.7); NEUTROPHILS % (AUTO) 75.5 % (42.2-75.2); PLATELET COUNT (AUTO) 325 K/uL (140-450); RED BLOOD CELL COUNT(AUTO) 4.26 MIL/uL (4.20-6.10); RED CELL DISTRIBUTION WIDTH 13.1 % (11.6-13.7); WHITE BLOOD COUNT (AUTO) 12.3 K/uL (4.8-10.8)
[2023-02-11 08:00] VITALS: PULSE 75; O2SAT 98
[2023-02-11 08:17] LABS: ALANINE AMINOTRANSFERASE 24 U/L (12-78); ALKALINE PHOSPHATASE 68 U/L (50-136); ANION GAP 11.4 (8-16); ASPARTATE AMINOTRANSFERASE 34 U/L (15-37); CALCIUM 8.3 mg/dL (8.5-10.1); CARBON DIOXIDE 24.9 mmol/L (21-32); CHLORIDE 107 mmol/L (98-107); GLUCOSE 120 mg/dL (74-106); POTASSIUM 3.3 mmol/L (3.5-5.1); SODIUM SERUM 140 mmol/L (136-145); TOTAL BILIRUBIN 0.8 mg/dL (0.0-1.0); TOTAL PROTEIN, SERUM 5.8 g/dL (6.4-8.2); UREA NITROGEN, BLOOD 9 mg/dL (7-18)
[2023-02-11] MEDS: VANCOMYCIN PER PHARMACY MC SCH (09:39)
[2023-02-11] MEDS: PANTOPRAZOLE 40 MG TABEC PO SCH (09:39)
[2023-02-11] MEDS: POTASSIUM CHLORIDE 10 MEQ TABER PO PRN (09:39)
[2023-02-11] MEDS: NACL 0.9% 1,000 ML IV SCH (09:40)
[2023-02-11 10:02] VITALS: PULSE 68
[2023-02-11 10:03] VITALS: TEMP 97.3
[2023-02-11 10:05] VITALS: PULSE 67; RESP 19; O2SAT 98
[2023-02-11] MEDS: Z-GUARD PASTE TP SCH (13:07)
== END 2023-02-11 16:12 | DRG 871 ==
LOC: MED 16:04 → MMU 21:31 → MTU 22:30
PROVIDERS: ADMIT Student in an Organized Health Care Education/Training Program; ATTEND Student in an Organized Health Care Education/Training Program
PROC: 0T9B70Z Drainage of Bladder with Drainage Device, Via Natural or Artificial Opening (ICD-10-PCS; principal; 2023-02-07)
DX: A41.9 Sepsis, unspecified organism (principal); E43 Unspecified severe protein-calorie malnutrition; N17.0 Acute kidney failure with tubular necrosis; N39.0 Urinary tract infection, site not specified; I50.32 Chronic diastolic (congestive) heart failure; R65.20 Severe sepsis without septic shock; R31.9 Hematuria, unspecified; E80.6 Other disorders of bilirubin metabolism; I25.10 Atherosclerotic heart disease of native coronary artery without angina pectoris; I11.0 Hypertensive heart disease with heart failure; E86.0 Dehydration; Z85.828 Personal history of other malignant neoplasm of skin; Z68.22 Body mass index [BMI] 22.0-22.9, adult
CPT/HCPCS: 36415; 70450; 80053; 80202; 81001; 82948; 83605; 83690; 85025; 85610; 87040; 87081; 87086; 87186; 96365; 96366; 96367; 97116; 97163-GP; 99291; J2543; J3370; J7060